=== PATIENT | female | born 1985 | race Caucasian/White ===

== ENCOUNTER 2016-07-29 14:57 | Inpatient (IN) | payer OTHER ==
[2016-07-29 16:36] VITALS: BMI 24.9
--- NOTE | 2016-07-29 18:47 | HP ---
CIWA Score - CIWA Score Nausea/Vomitin-Mild Nausea/No Vomiting Muscle Tremors: 4-Moderate,w/Arms Extend Anxiety: 4-Mod. Anxious/Guarded Agitation: 4-Moderately Restless Paroxysmal Sweats: 2 Orientation: 1-Uncertain about Date Tacttile Disturbances: 0-None Auditory Disturbances: 0-None Visual Disturbances: 0-None Headache: 2-Mild CIWA-Ar Total Score: 18 Admission ROS BHS - HPI Chief Complaint: withdrawal sx patient prefers librium detox regimen due to previous benzo detox librium worked well, tolerated well Allergies/Adverse Reactions: Allergies Allergy/AdvReac Type Severity Reaction Status Date / Time No Known Allergies Allergy Verified 07/29/16 17:28 History of Present Illness: 30 years old female with long history of klonopin xanax nicotine dependence, has restless leg syndron and depression is admitted to detox Exam Limitations: No Limitations - Ebola screening Have you traveled outside of the country in the last 21 days: No Have you had contact with anyone from an Ebola affected area: No Have you been sick,other than usual withdrawal symptoms: No Do you have a fever: No - Review of Systems Constitutional: Chills, Loss of Appetite, Changes in sleep, Unintentional Wgt. Loss, Unexplained wgt Loss EENT: reports: No Symptoms Reported Respiratory: reports: No Symptoms reported Cardiac: reports: No Symptoms Reported GI: reports: Nausea, Poor Appetite, Poor Fluid Intake, Abdominal cramping : reports: No Symptoms Reported Musculoskeletal: reports: No Symptoms Reported Integumentary: reports: Change in Color (right hand iv opiate) Neuro: reports: Seizure (xanax withdrawal related last episode 11/2015), Tremors Endocrine: reports: No Symptoms Reported Hematology: reports: No Symptoms Reported Psychiatric: reports: Judgement Intact, Depressed Other Systems: Reviewed and Negative Patient History - Patient Medical History Hx Anemia: No Hx Asthma: No Hx Chronic Obstructive Pulmonary Disease (COPD): No Hx Cancer: No Hx Cardiac Disorders: No Hx Congestive Heart Failure: No Hx Hypertension: No Hx Hypercholesterolemia: No Hx Pacemaker: No HX Cerebrovascular Accident: No Hx Seizures: No Hx Dementia: No Hx Diabetes: No Hx Gastrointestinal Disorders: No Hx Liver Disease: No Hx Genitourinary Disorders: No Hx Sexually Transmitted Disorders: No Hx Renal Disease (ESRD): No Hx Hepatitis C: No Hx Depression: Yes Hx Suicide Attempt: No Hx Bipolar Disorder: No Hx Schizophrenia: No - Patient Surgical History Past Surgical History: Yes Hx Neurologic Surgery: No Hx Cataract Extraction: No Hx Cardiac Surgery: No Hx Lung Surgery: No Hx Breast Surgery: No Hx Breast Biopsy: No Hx Abdominal Surgery: No Hx Appendectomy: No Hx Cholecystectomy: Yes (2011) Hx Genitourinary Surgery: No Hx Section: No Hx Orthopedic Surgery: No Hx Hysterectomy: No Anesthesia Reaction: No - PPD History Previous Implant?: Yes Documented Results: Negative w/o proof Implanted On Prior [facility] Admission?: No PPD to be Administered?: Yes - Reproductive History Patient is a Female of Child Bearing Age (11 -55 yrs old): Yes Last Menstrual Period: 07/22/16 Patient : No - Smoking Cessation Smoking history: Current every day smoker Have you smoked in the past 12 months: Yes Aproximately how many cigarettes per day: 5 Cigars Per Day: 0 Hx Chewing Tobacco Use: No Initiated information on smoking cessation: Yes 'Breaking Loose' booklet given: 07/29/16 - Substance & Tx. History Hx Alcohol Use: No Hx Substance Use: Yes Substance Use Type: Heroin, Opiates, Tranquilizers Hx Substance Use Treatment: Yes - Substances Abused Alprazolam (Xanax) Route: Oral Frequency: Daily Amount used: 30mg Age of first use: 29 Date of Last Use: 07/28/16 Benzodiazepine (Klonopin) Route: Oral Frequency: Daily Amount used: 20mg Age of first use: 29 Date of Last Use: 07/26/16 Family Disease History - Family Disease History Family Disease History: Heart Disease: Father, [place]: Mother Admission Physical Exam S - Vital Signs Vital Signs: Vital Signs - 24 hr 07/29/16 16:31 Temperature 97 F L Pulse Rate 85 Respiratory 20 Rate Blood Pressure 107/69 - Physical General Appearance: Yes: Appropriately Dressed, Moderate Distress, Thin, Tremorous, Irritable, Sweating, Anxious HEENTM: Yes: Hearing grossly Normal, Normal ENT Inspection, Normocephalic, Normal Voice Respiratory: Yes: Chest Non-Tender, Lungs Clear, Normal Breath Sounds, No Respiratory Distress, No Accessory Muscle Use Neck: Yes: Supple, Trachea in good position Breast: Yes: Breasts Symetrical Cardiology: Yes: Regular Rhythm, Regular Rate, S1, S2 Abdominal: Yes: Normal Bowel Sounds, Soft Genitourinary: Yes: Within Normal Limits Back: Yes: Normal Inspection Musculoskeletal: Yes: full range of Motion, Gait Steady Extremities: Yes: Normal Range of Motion, Non-Tender, Tremors Neurological: Yes: Alert, Motor Strength 5/5, Normal Response, Depressed Affect Integumentary: Yes: Warm, Track Acevedo Lymphatic: Yes: Within Normal Limits - Diagnostic (1) Sedative, hypnotic or anxiolytic dependence with withdrawal, uncomplicated Current Visit: Yes Status: Acute Comment: librium regimen as per patient preference (2) Methadone maintenance therapy patient Current Visit: Yes Status: Acute Comment: 145 mg verification pending (3) Weight loss Current Visit: Yes Status: Acute (4) Withdrawal from benzodiazepine Current Visit: Yes Status: Acute Qualifiers: Complication of substance-induced condition: uncomplicated Qualified Code(s): F13.230 - Sedative, hypnotic or anxiolytic dependence with withdrawal, uncomplicated (5) Nicotine dependence Current Visit: Yes Status: Acute Qualifiers: Nicotine product type: cigarettes Substance use status: in withdrawal Qualified Code(s): F17.213 - Nicotine dependence, cigarettes, with withdrawal Cleared for Admission [facility] - Detox or Rehab [facility] Level of Care: Medically Managed Detox Regimen/Protocol: Librium [facility] Breath Alcohol Content Breath Alcohol Content: 0 Urine Pregancy Test - Result Urine Test Results: Negative- NO Line Present Urine Drug Screen - Results Drug Screen Negative: No Urine Drug Screen Results: OPI-Opiates, BZO-Benzodiazepines, MTD-Methadone, OXY- Oxycodone
[2016-07-29] MEDS ORDERED: MAGNESIUM HYDROX 2400MG/30ML ORAL SUSPENSION 30 ML CUP PO PRN (19:12)
[2016-07-29] MEDS ORDERED: chlordiazePOXIDE HCL 25 MG CAPSULE PO ONE (19:12)
[2016-07-29] MEDS ORDERED: MAG HYDROX/AL HYDROX/SIMETH 30 ML UNIT-DOSE CUP PO PRN (19:12)
[2016-07-29] MEDS ORDERED: IBUPROFEN 400 MG TABLET (FP) PO PRN (19:12)
[2016-07-29] MEDS ORDERED: P-EPHED 60MG/TRIPROLIDI 2.5MG TABLET PO PRN (19:12)
[2016-07-29] MEDS ORDERED: MENTHOL/PHENOL 1 EACH UD MM PRN (19:12)
[2016-07-29] MEDS ORDERED: diphenhydrAMINE HCL 50 MG CAPSULE PO PRN (19:12)
[2016-07-29] MEDS ORDERED: MAGNESIUM CITRATE 300 ML BOTTLE PO PRN (19:12)
[2016-07-29] MEDS ORDERED: LOPERAMIDE HCL 2 MG CAPSULE PO PRN (19:12)
[2016-07-29] MEDS ORDERED: guaiFENesin/D-METHORPHAN HB 10 ML UNIT-DOSE CUPS PO PRN (19:12)
[2016-07-29] MEDS ORDERED: NICOTINE POLACRILEX 2 MG GUM BC PRN (19:12)
[2016-07-29 22:47] LABS: URINE APPEARANCE CLOUDY; URINE BILIRUBIN NEGATIVE (NEGATIVE); URINE BLOOD NEGATIVE (NEGATIVE); URINE COLOR YELLOW; URINE GLUCOSE (UA) NEGATIVE (NEGATIVE); URINE KETONE NEGATIVE (NEGATIVE); URINE NITRITE POSITIVE (NEGATIVE); URINE UROBILINOGEN NEGATIVE E.U./dl (0.2-1.0)
[2016-07-29] MEDS: chlordiazePOXIDE HCL 25 MG CAPSULE PO SCH (22:47)
[2016-07-29] MEDS: GABAPENTIN 300 MG CAPSULE (FP) PO SCH (22:47)
[2016-07-29] MEDS: THIAMINE HCL 100 MG TABLET (FP) PO SCH (22:48)
[2016-07-29 22:52] LABS: URINE LEUK ESTERASE 3+ (NEGATIVE); URINE PROTEIN 1+ (NEGATIVE)
[2016-07-29 22:56] LABS: URINE BACTERIA RARE /hpf (NONE SEEN); URINE MUCUS FEW; URINE RBC 2 /hpf (0-3); URINE WBC 145 /hpf (3-5)
[2016-07-30] MEDS: GABAPENTIN 300 MG CAPSULE (FP) PO SCH ×3 (06:09→23:23)
[2016-07-30] MEDS: chlordiazePOXIDE HCL 25 MG CAPSULE PO SCH ×4 (06:09→23:23)
[2016-07-30] MEDS ORDERED: METHADONE HCL 10 MG TABLET PO ONE (08:19)
[2016-07-30] MEDS ORDERED: METHADONE PO SCH (09:00)
[2016-07-30] MEDS ORDERED: METHADONE HCL 5 MG TABLET ONE ×2 (10:14→11:09)
[2016-07-30] MEDS ORDERED: METHADONE HCL 40 MG DISPERSABLE TABLET ONE ×2 (10:14→11:09)
[2016-07-30] MEDS ORDERED: METHADONE 120 MG, METHADONE 20 MG, METHADONE 5 MG PO SCH (10:21)
[2016-07-30 10:37] LABS: MCHC 32.9 g/dl (32.0-36.0); MEAN PLT VOLUME 8.2 fl (7.5-11.1); PLATELET COUNT 160 K/MM3 (134-434); RDW 13.6 % (11.6-15.6); WHITE BLOOD COUNT 6.5 K/mm3 (4.0-10.0)
[2016-07-30] MEDS ORDERED: METHADONE HCL 10 MG TABLET ONE (11:09)
[2016-07-30] MEDS: METHADONE 120 MG, METHADONE 20 MG, METHADONE 5 MG PO SCH (12:00)
[2016-07-30] MEDS: NICOTINE 14 MG/24 HOURS TOPICAL PATCH TD SCH (12:01)
[2016-07-30] MEDS: PRENATAL VITAMINS W/ FOLIC ACID TABLET (FP) PO SCH (12:01)
[2016-07-30 12:23] LABS: ALBUMIN 3.1 g/dl (3.4-5.0); ANION GAP 9 (8-16); CALCIUM 8.2 mg/dL (8.5-10.1); CO2 29 mmol/L (21-32); GLUCOSE,RANDOM 92 mg/dL (74-106); SGOT/AST 37 U/L (15-37); SGPT/ALT 39 U/L (12-78)
[2016-07-30 12:26] LABS: ALK PHOS 96 U/L (45-117); BILIRUBIN,TOTAL 0.3 mg/dL (0.2-1.0); CREATININE 0.7 mg/dL (0.55-1.02); TOT PROT 6.3 g/dl (6.4-8.2)
--- NOTE | 2016-07-30 14:56 | CONSULT ---
[facility] Psychiatric Consult - Data Date of interview: 07/30/16 Admission source: [facility] Identifying data: First admission to [facility] for this 30 y/o female seeking detox treatment for heroin and benzodiazepine (xanax/klonopin) dependence.PAtient is ,a mother of one,domiciled,unemployed and supported by her . Substance Abuse History: - Smoking Cessation. Smoking history: Current every day smoker. Have you smoked in the past 12 months: Yes. Aproximately how many cigarettes per day: 5. Cigars Per Day: 0. Hx Chewing Tobacco Use: No. Initiated information on smoking cessation: Yes. 'Breaking Loose' booklet given : 07/29/16. - Substance & Tx. History. Hx Alcohol Use: No. Hx Substance Use: Yes. Substance Use Type: Heroin, Opiates, Tranquilizers. Hx Substance Use Treatment: Yes. - Substances Abused. Alprazolam (Xanax). Route: Oral. Frequency: Daily. Amount used: 30mg. Age of first use: 29. Date of Last Use: 07/28/16. Benzodiazepine (Klonopin). Route: Oral. Frequency: Daily. Amount used: 20mg. Age of first use: 29. Confirmed by patient. Medical History: History of cholecystectomy.Patient,otherwise,endorses good general health. Psychiatric History: No history of psychiatric hospitalizations.Patient is on methadone maintenance at the [facility] MMTP program (145 mg/day).She is also prescribed gabapentin 600 mg po tid for mood regulation.Diagnosed with Mood Disorder and Anxiety Disorder.Ms Durán denies history of suicide attempts. Physical/Sexual Abuse/Trauma History: Patient denies history of sexual abuse.She reports a family history of suicide attempts on her paternal side ( grand father,a paternal uncle and one of her father's cousins). Additional Comment: Urine Drug Screen Results: OPI-Opiates, BZO-Benzodiazepines , MTD-Methadone, OXY-Oxycodone.Noted. Mental Status Exam - Mental Status Exam Alert and Oriented to: Time, Place, Person Cognitive Function: Good Patient Appearance: Well Groomed (overweight) Mood: Hopeful (future-oriented), Euthymic Affect: Appropriate, Normal Range Patient Behavior: Fatigued, Appropriate (well-mannered), Cooperative Speech Pattern: Clear, Appropriate (articulate) Voice Loudness: Normal Thought Process: Intact, Goal Oriented Thought Disorder: Not Present Hallucinations: Denies Suicidal Ideation: Denies Homicidal Ideation: Denies Insight/Judgement: Fair Sleep: Fair Appetite: Good Muscle strength/Tone: Normal Gait/Station: Normal Psychiatric Findings - Problem List ([place] 1, 2,3) (1) Opioid dependence on agonist therapy Current Visit: Yes Status: Acute (2) Sedative, hypnotic or anxiolytic dependence with withdrawal, uncomplicated Current Visit: Yes Status: Acute Comment: librium regimen as per patient preference (3) Nicotine dependence Current Visit: Yes Status: Acute Qualifiers: Nicotine product type: cigarettes Substance use status: in withdrawal Qualified Code(s): F17.213 - Nicotine dependence, cigarettes, with withdrawal (4) Substance induced mood disorder Current Visit: Yes Status: Acute - Initial Treatment Plan Initial Treatment Plan: Psychoeducation.Detoxification in progress.Gabapentin 600 mg po tid is ordered (medical attending).Side effects/benefits discussed with the patient.She is in agreement with this plan of care.Observation.
--- NOTE | 2016-07-30 15:16 | PN ---
S CIWA - CIWA Score Nausea/Vomitin Muscle Tremors: 3 Anxiety: 3 Agitation: 3 Paroxysmal Sweats: 1-Minimal Palms Moist Orientation: 0-Oriented Tacttile Disturbances: 1-Very Mild Itch/Numbness Auditory Disturbances: 1-Very Mild Visual Disturbances: 1-Very Mild Sensitivity Headache: 2-Mild CIWA-Ar Total Score: 18 BHS Progress Note (SOAP) Subjective: ALERT,IRRITABLE,ANXIOUS,INTERRUPTED SLEEP,PAIN IN THE BODY AND BACK Objective: 07/30/16 15:14 Vital Signs Temperature 96.6 F L 07/30/16 14:31 Pulse Rate 82 07/30/16 14:31 Respiratory Rate 18 07/30/16 14:31 Blood Pressure 112/63 07/30/16 14:31 O2 Sat by Pulse Oximetry (%) EKG NSR WITH SINUS ARRHYTHMIA Laboratory Last Values WBC 6.5 K/mm3 (4.0-10.0) 07/30/16 08:13 RBC 4.37 M/mm3 (3.60-5.2) 07/30/16 08:13 Hgb 12.6 GM/dL (10.7-15.3) 07/30/16 08:13 Hct 38.4 % (32.4-45.2) 07/30/16 08:13 MCV 88.0 fl (80-96) 07/30/16 08:13 MCHC 32.9 g/dl (32.0-36.0) 07/30/16 08:13 RDW 13.6 % (11.6-15.6) 07/30/16 08:13 Plt Count 160 K/MM3 (134-434) 07/30/16 08:13 MPV 8.2 fl (7.5-11.1) 07/30/16 08:13 Sodium 141 mmol/L (136-145) 07/30/16 08:13 Potassium 4.1 mmol/L (3.5-5.1) 07/30/16 08:13 Chloride 103 mmol/L (98-107) 07/30/16 08:13 Carbon Dioxide 29 mmol/L (21-32) 07/30/16 08:13 Anion Gap 9 (8-16) 07/30/16 08:13 BUN 14 mg/dL (7-18) 07/30/16 08:13 Creatinine 0.7 mg/dL (0.55-1.02) 07/30/16 08:13 Creat Clearance w eGFR > 60 (>60) 07/30/16 08:13 Random Glucose 92 mg/dL (74-106) 07/30/16 08:13 Calcium 8.2 mg/dL (8.5-10.1) L 07/30/16 08:13 Total Bilirubin 0.3 mg/dL (0.2-1.0) 07/30/16 08:13 AST 37 U/L (15-37) 07/30/16 08:13 ALT 39 U/L (12-78) 07/30/16 08:13 Alkaline Phosphatase 96 U/L (45-117) 07/30/16 08:13 Total Protein 6.3 g/dl (6.4-8.2) L 07/30/16 08:13 Albumin 3.1 g/dl (3.4-5.0) L 07/30/16 08:13 Urine Color Yellow 07/29/16 22:37 Urine Appearance Cloudy 07/29/16 22:37 Urine pH 7.0 (5.0-8.0) 07/29/16 22:37 Ur Specific [place] 1.020 (1.001-1.035) 07/29/16 22:37 Urine Protein 1+ (NEGATIVE) H 07/29/16 22:37 Urine Glucose (UA) Negative (NEGATIVE) 07/29/16 22:37 Urine Ketones Negative (NEGATIVE) 07/29/16 22:37 Urine Blood Negative (NEGATIVE) 07/29/16 22:37 Urine Nitrite Positive (NEGATIVE) 07/29/16 22:37 Urine Bilirubin Negative (NEGATIVE) 07/29/16 22:37 Urine Urobilinogen Negative E.U./dl (0.2-1.0) 07/29/16 22:37 Ur Leukocyte Esterase 3+ (NEGATIVE) H 07/29/16 22:37 Urine RBC 2 /hpf (0-3) 07/29/16 22:37 Urine WBC 145 /hpf (3-5) 07/29/16 22:37 Ur Epithelial Cells Many /hpf (FEW) 07/29/16 22:37 Amorphous Urates Few /hpf (NONE SEEN) 07/29/16 22:37 Urine Bacteria Rare /hpf (NONE SEEN) 07/29/16 22:37 Urine Mucus Few 07/29/16 22:37 Assessment: 07/30/16 15:15 WITHDRAWAL SYMPTOM Plan: CONTINUE DETOX,REPEAT UA.URINE FOR C/C R/O UTI,FLUID
[2016-07-30] MEDS: chlordiazePOXIDE HCL 25 MG CAPSULE PO PRN ×2 (15:52→20:49)
[2016-07-30] MEDS: THIAMINE HCL 100 MG TABLET (FP) PO SCH (23:23)
[2016-07-31] MEDS ORDERED: METHADONE HCL 10 MG TABLET ONE (05:44)
[2016-07-31] MEDS ORDERED: METHADONE HCL 40 MG DISPERSABLE TABLET ONE (05:46)
[2016-07-31] MEDS ORDERED: METHADONE HCL 5 MG TABLET ONE (05:46)
[2016-07-31] MEDS ORDERED: METHADONE HCL 10 MG TABLET PO SCH (06:00)
[2016-07-31] MEDS: METHADONE 120 MG, METHADONE 20 MG, METHADONE 5 MG PO SCH (06:18)
[2016-07-31] MEDS: GABAPENTIN 300 MG CAPSULE (FP) PO SCH ×3 (06:18→23:06)
[2016-07-31] MEDS: chlordiazePOXIDE HCL 25 MG CAPSULE PO SCH ×3 (07:58→17:31)
[2016-07-31] MEDS: chlordiazePOXIDE HCL 25 MG CAPSULE PO PRN ×3 (08:39→19:14)
[2016-07-31] MEDS: PRENATAL VITAMINS W/ FOLIC ACID TABLET (FP) PO SCH (10:41)
[2016-07-31] MEDS: NICOTINE 14 MG/24 HOURS TOPICAL PATCH TD SCH (10:42)
--- NOTE | 2016-07-31 11:39 | EKG ---
Test Reason : Blood Pressure : / mmHG Vent. Rate : 060 BPM Atrial Rate : 060 BPM P-R Int : 146 ms QRS Dur : 086 ms QT Int : 470 ms P-R-T Axes : 059 076 048 degrees QTc Int : 470 ms BASELINE ARTIFACT NORMAL SINUS RHYTHM NORMAL ECG NO PREVIOUS ECGS AVAILABLE Confirmed by JJ GIRALDO MD ([id number]) on 07/31/2016 11:39:09 AM Referred By: Confirmed By:JJ GIRALDO MD
--- NOTE | 2016-07-31 13:28 | PN ---
S CIWA - CIWA Score Nausea/Vomitin Muscle Tremors: 3 Anxiety: 3 Agitation: 2 Paroxysmal Sweats: 1-Minimal Palms Moist Orientation: 0-Oriented Tacttile Disturbances: 1-Very Mild Itch/Numbness Auditory Disturbances: 1-Very Mild Visual Disturbances: 1-Very Mild Sensitivity Headache: 2-Mild CIWA-Ar Total Score: 17 BHS Progress Note (SOAP) Subjective: ALERT,IRRITABLE,ANXIOUS,INTERRUPTED SLEEP,PAIN IN THE BODY Objective: 07/31/16 13:26 Vital Signs Temperature 97.9 F 07/31/16 10:07 Pulse Rate 77 07/31/16 10:07 Respiratory Rate 18 07/31/16 10:07 Blood Pressure 95/67 07/31/16 10:07 O2 Sat by Pulse Oximetry (%) Assessment: 07/31/16 13:26 WITHDRAWAL SYMPTOM Plan: CONTINUE DETOX,REPEAT UA AND URINE FOR C/S R/O UTI,START ON BACTRIM DS 1 TAB PO BID
[2016-07-31] MEDS: SULFAMETHOXAZOLE/TRIMETHOPRIM 800MG/160MG D.S. TABLET PO SCH ×2 (15:01→23:13)
[2016-07-31] MEDS: ACETAMINOPHEN 325 MG TABLET (FP) PO PRN (15:01)
[2016-07-31] MEDS: chlordiazePOXIDE 5 MG CAPSULE PO SCH (23:06)
[2016-07-31] MEDS: THIAMINE HCL 100 MG TABLET (FP) PO SCH (23:06)
[2016-08-01] MEDS ORDERED: METHADONE HCL 10 MG TABLET ONE (04:40)
[2016-08-01] MEDS ORDERED: METHADONE HCL 5 MG TABLET ONE (04:41)
[2016-08-01] MEDS ORDERED: METHADONE HCL 40 MG DISPERSABLE TABLET ONE (04:41)
[2016-08-01] MEDS: chlordiazePOXIDE 5 MG CAPSULE PO SCH ×3 (05:49→17:30)
[2016-08-01] MEDS: METHADONE 120 MG, METHADONE 20 MG, METHADONE 5 MG PO SCH (05:50)
[2016-08-01] MEDS: GABAPENTIN 300 MG CAPSULE (FP) PO SCH ×3 (05:56→22:49)
[2016-08-01] MEDS: chlordiazePOXIDE HCL 25 MG CAPSULE PO PRN ×3 (08:38→18:25)
--- NOTE | 2016-08-01 09:34 | PN ---
BHS Progress Note (SOAP) Subjective: shakes sweats interrupted sleep agitation Objective: 08/01/16 09:40 Vital Signs Temperature 97.7 F 08/01/16 06:00 Pulse Rate 90 08/01/16 06:00 Respiratory Rate 18 08/01/16 06:00 Blood Pressure 105/72 08/01/16 06:00 O2 Sat by Pulse Oximetry (%) awake/alert ambulating no acute distress Assessment: 08/01/16 09:40 withdrawal sx Plan: continue detox increase fluids visitiril prn d/c in am
[2016-08-01] MEDS: SULFAMETHOXAZOLE/TRIMETHOPRIM 800MG/160MG D.S. TABLET PO SCH ×2 (10:45→22:50)
[2016-08-01] MEDS: PRENATAL VITAMINS W/ FOLIC ACID TABLET (FP) PO SCH (10:45)
[2016-08-01] MEDS: NICOTINE 14 MG/24 HOURS TOPICAL PATCH TD SCH (10:46)
[2016-08-01] MEDS: CYCLOBENZAPRINE HCL 10 MG TABLET (FP) PO PRN ×2 (10:48→22:50)
[2016-08-01] MEDS: ACETAMINOPHEN 325 MG TABLET (FP) PO PRN (13:47)
[2016-08-01] MEDS: hydrOXYzine PAMOATE 50 MG CAPSULE (FP) PO PRN ×2 (17:32→22:49)
[2016-08-01] MEDS ORDERED: chlordiazePOXIDE 5 MG CAPSULE ONE (21:24)
[2016-08-01] MEDS: THIAMINE HCL 100 MG TABLET (FP) PO SCH (22:50)
[2016-08-01] MEDS: chlordiazePOXIDE HCL 10 MG CAPSULE PO SCH (22:52)
[2016-08-02] MEDS: hydrOXYzine PAMOATE 50 MG CAPSULE (FP) PO PRN ×2 (01:56→09:07)
[2016-08-02] MEDS ORDERED: chlordiazePOXIDE 5 MG CAPSULE ONE (04:46)
[2016-08-02] MEDS ORDERED: METHADONE HCL 10 MG TABLET ONE (05:48)
[2016-08-02] MEDS ORDERED: METHADONE HCL 40 MG DISPERSABLE TABLET ONE (05:49)
[2016-08-02] MEDS ORDERED: METHADONE HCL 5 MG TABLET ONE (05:49)
[2016-08-02] MEDS: METHADONE 120 MG, METHADONE 20 MG, METHADONE 5 MG PO SCH (06:25)
[2016-08-02] MEDS: chlordiazePOXIDE HCL 10 MG CAPSULE PO SCH (06:25)
[2016-08-02] MEDS: GABAPENTIN 300 MG CAPSULE (FP) PO SCH (08:19)
[2016-08-02] MEDS: PRENATAL VITAMINS W/ FOLIC ACID TABLET (FP) PO SCH (09:06)
[2016-08-02] MEDS: CYCLOBENZAPRINE HCL 10 MG TABLET (FP) PO PRN (09:07)
--- NOTE | 2016-08-02 09:36 | DS ---
[facility] Detox Discharge Summary Admission Date: 07/29/16 Discharge Date: 08/02/16 - History Present History: Opioid Dependence, Sedative Dependence - Physical Exam Results Vital Signs: Vital Signs Temperature 97.2 F L 08/02/16 06:55 Pulse Rate 72 08/02/16 06:55 Respiratory Rate 18 08/02/16 06:55 Blood Pressure 108/70 08/02/16 06:55 O2 Sat by Pulse Oximetry (%) - Treatment Hospital Course: Detox Protocol Followed, Detoxed Safely, Responded well, Discharged Condition Good - Medication Discharge Medications: Ambulatory Orders Gabapentin [Neurontin -] 600 mg PO TID 07/29/16 - Diagnosis (1) Methadone maintenance therapy patient Current Visit: Yes Status: Chronic (2) Nicotine dependence Current Visit: Yes Status: Chronic Qualifiers: Nicotine product type: cigarettes Substance use status: in withdrawal Qualified Code(s): F17.213 - Nicotine dependence, cigarettes, with withdrawal (3) Sedative, hypnotic or anxiolytic dependence with withdrawal, uncomplicated Current Visit: Yes Status: Chronic (4) Weight loss Current Visit: Yes Status: Chronic (5) UTI (urinary tract infection) Current Visit: Yes Status: Acute Qualifiers: Urinary tract infection type: acute cystitis - AMA Did Patient Leave Against Medical Advice: No
[2016-08-02 11:31] VITALS: BP 104/69; PULSE 90; TEMP 98.2
== END 2016-08-02 10:01 | disposition home or self-care (01) | DRG 773 ==
LOC: YASAS 14:57 → Y6N 17:59
PROVIDERS: ADMIT Internal Medicine Addiction Medicine; ATTEND Internal Medicine Addiction Medicine
PROC: HZ2ZZZZ Detoxification Services for Substance Abuse Treatment (ICD-10-PCS; principal; 2016-08-02)
DX: F11.20 Opioid dependence, uncomplicated (principal); F13.230 Sedative, hypnotic or anxiolytic dependence with withdrawal, uncomplicated; F17.213 Nicotine dependence, cigarettes, with withdrawal; F19.24 Other psychoactive substance dependence with psychoactive substance-induced mood disorder; R63.4 Abnormal weight loss; Z68.24 Body mass index [BMI] 24.0-24.9, adult
CPT/HCPCS: 36415; 80053; 81003; 81015; 85027; 86593; 87086; 93005; 93010

== ENCOUNTER 2018-05-29 13:42 | Inpatient (IN) | payer OTHER ==
[2018-05-29 14:22] VITALS: BMI 27.8
--- NOTE | 2018-05-29 16:07 | HP ---
CIWA Score Nausea/Vomitin-Int. Nausea w/Dry Heave Muscle Tremors: 4-Moderate,w/Arms Extend Anxiety: 4-Mod. Anxious/Guarded Agitation: 4-Moderately Restless Paroxysmal Sweats: No Perspiration Orientation: 0-Oriented Tacttile Disturbances: 0-None Auditory Disturbances: 0-None Visual Disturbances: 2-Mild Sensitivity Headache: 4-Moderately Severe CIWA-Ar Total Score: 22 - Admission Criteria [facility] Guidelines: Admission for Medically Managed Detox: Requires at least one of the followin. CIWA greater than 12 2. Seizures within the past 24 hours 3. Delirium tremens within the past 24 hours 4. Hallucinations within the past 24 hours 5. Acute intervention needed for co occurring medical disorder 6. Acute intervention needed for co occurring psychiatric disorder 7. Severe withdrawal that cannot be handled at a lower level of care (continued vomiting, continued diarrhea, abnormal vital signs) requiring intravenous medication and/or fluids 8. Patient presents the following: CIWA greater than 12, Seizures, delirium tremens or hallucinations in the past 12 hours Admission Criteria Met: Admission criteria met Admission ROS [facility] Allergies/Adverse Reactions: Allergies Allergy/AdvReac Type Severity Reaction Status Date / Time Fish Containing Products Allergy Severe Swelling Verified 05/29/18 16:57 No Known Drug Allergies Allergy Verified 05/29/18 17:41 History of Present Illness: patient here requesting detox from benzo use , reports 10-15 x 2 mg xanax / day since 2 years ago ,+ withdrawal seizure 1 mo ago did not go to the hospital , latest use this morning . etoh use : 1 pint vodka every 2 days , + blackouts , denies tremors , + falls most recently 6 mo ago hit the back of her head went to hospital in [place] . cannabis : occasional utox + thc , mtd, + Bzo MMTP : since 5 years ago , currently 175 mg q d latest today tobacco : 05/18 ppd x 15 years PMHX : denies PSHX : dee 2012 psych : depression , anxiety , claims on lamictal and gabapentin upt neg lmp : now dtr age 6 currently w/ bio father in [place] SHX : lives w/ dtr and , unemployed . - Ebola screening Have you traveled outside of the country in the last 21 days: No Have you had contact with anyone from an Ebola affected area: No Have you been sick,other than usual withdrawal symptoms: No Do you have a fever: No - Review of Systems Constitutional: See HPI EENT: reports: Other (contact , denies dysphagia except due to lack of teeth) Respiratory: reports: No Symptoms reported Cardiac: reports: No Symptoms Reported GI: reports: See HPI : reports: No Symptoms Reported Musculoskeletal: reports: No Symptoms Reported Integumentary: reports: Rash (went to ER 2 weeks ago , given ointment , feels rahs has improved) Neuro: reports: Headache Endocrine: reports: No Symptoms Reported Psychiatric: reports: Mood/Affect Appropiate, Orientated x3 Patient History - Patient Medical History Hx Anemia: No Hx Asthma: No Hx Chronic Obstructive Pulmonary Disease (COPD): No Hx Cancer: No Hx Cardiac Disorders: No Hx Congestive Heart Failure: No Hx Hypertension: No Hx Hypercholesterolemia: No Hx Pacemaker: No HX Cerebrovascular Accident: No Hx Seizures: No Hx Dementia: No Hx Diabetes: No Hx Gastrointestinal Disorders: No Hx Liver Disease: No Hx Genitourinary Disorders: No Hx Sexually Transmitted Disorders: No Hx Renal Disease (ESRD): No Hx Hepatitis C: No Hx Depression: Yes Hx Suicide Attempt: No Hx Bipolar Disorder: No Hx Schizophrenia: No - Patient Surgical History Past Surgical History: Yes Hx Neurologic Surgery: No Hx Cataract Extraction: No Hx Cardiac Surgery: No Hx Lung Surgery: No Hx Breast Surgery: No Hx Breast Biopsy: No Hx Abdominal Surgery: No Hx Appendectomy: No Hx Cholecystectomy: Yes (2011) Hx Genitourinary Surgery: No Hx Section: No Hx Orthopedic Surgery: No Hx Hysterectomy: No Anesthesia Reaction: No - PPD History Date: 07/31/16 - Reproductive History Last Menstrual Period: 07/22/16 - Smoking Cessation Smoking history: Current every day smoker Have you smoked in the past 12 months: Yes Aproximately how many cigarettes per day: 5 Cigars Per Day: 0 Hx Chewing Tobacco Use: No Initiated information on smoking cessation: No - Substances Abused Alcohol Route: Oral Frequency: Daily Amount used: LIQUOR- 1 PINT Age of first use: 18 Date of Last Use: 05/28/18 Alprazolam (Xanax) Route: Oral Frequency: Daily Amount used: 30mg Age of first use: 30 Date of Last Use: 05/28/18 Family Disease History - Family Disease History Family Disease History: Heart Disease: Father, [place]: Mother Admission Physical Exam S - Vital Signs Vital Signs: Vital Signs - 24 hr 05/29/18 14:18 Temperature 97.4 F L Pulse Rate 83 Respiratory 18 Rate Blood Pressure 135/73 - Physical General Appearance: Yes: Moderate Distress HEENTM: Yes: EOMI, Hearing grossly Normal, Normocephalic, Normal Voice, Pharynx Normal Respiratory: Yes: Chest Non-Tender, Lungs Clear, Normal Breath Sounds Neck: Yes: No masses,lesions,Nodules, Trachea in good position Breast: Yes: Breast Exam Deferred Cardiology: Yes: Regular Rhythm, Regular Rate, S1, S2, Tachycardia Abdominal: Yes: Normal Bowel Sounds, Non Tender Genitourinary: Yes: Within Normal Limits Back: Yes: Normal Inspection Musculoskeletal: Yes: Gait Steady Extremities: Yes: Normal Capillary Refill, Normal Range of Motion Neurological: Yes: Motor Strength 5/5, Normal Mood/Affect Integumentary: Yes: Normal Color, Dry, Warm - Diagnostic (1) Alcohol dependence Current Visit: Yes Status: Acute Qualifiers: Substance use status: in withdrawal (2) Opioid dependence on agonist therapy Current Visit: No Status: Chronic (3) Withdrawal from benzodiazepine Current Visit: No Status: Acute Qualifiers: Complication of substance-induced condition: uncomplicated Qualified Code(s ): F13.230 - Sedative, hypnotic or anxiolytic dependence with withdrawal, uncomplicated (4) Nicotine dependence Current Visit: No Status: Chronic Qualifiers: Nicotine product type: cigarettes Substance use status: in withdrawal Qualified Code(s): F17.213 - Nicotine dependence, cigarettes, with withdrawal S Breath Alcohol Content Breath Alcohol Content: 0 Urine Pregancy Test - Result Urine Test Results: Negative- NO Line Present Urine Drug Screen - Results Drug Screen Negative: No Urine Drug Screen Results: THC-Marijuana, BZO-Benzodiazepines, MTD-Methadone
[2018-05-29] MEDS ORDERED: MENTHOL/PHENOL 1 EACH UD MM PRN (16:13)
[2018-05-29] MEDS ORDERED: MAGNESIUM CITRATE 300 ML BOTTLE PO PRN (16:13)
[2018-05-29] MEDS ORDERED: guaiFENesin/D-METHORPHAN HB 10 ML UNIT-DOSE CUPS PO PRN (16:13)
[2018-05-29] MEDS ORDERED: P-EPHED 60MG/TRIPROLIDI 2.5MG TABLET PO PRN (16:13)
[2018-05-29] MEDS ORDERED: MAG HYDROX/AL HYDROX/SIMETH 30 ML UNIT-DOSE CUP PO PRN (16:13)
[2018-05-29] MEDS: chlordiazePOXIDE HCL 25 MG CAPSULE PO PRN (18:30)
[2018-05-29] MEDS: NICOTINE POLACRILEX 2 MG GUM BC PRN (20:44)
[2018-05-29] MEDS: THIAMINE HCL 100 MG TABLET (FP) PO SCH (22:17)
[2018-05-29] MEDS: chlordiazePOXIDE HCL 25 MG CAPSULE PO SCH (22:17)
[2018-05-29] MEDS: MELATONIN 5 MG TABLETS PO PRN (22:18)
[2018-05-30] MEDS: chlordiazePOXIDE HCL 25 MG CAPSULE PO SCH ×3 (05:41→17:05)
[2018-05-30] MEDS ORDERED: METHADONE HCL 10 MG TABLET PO SCH (07:30)
--- NOTE | 2018-05-30 07:38 | CONSULT ---
[facility] Psychiatric Consult - Data Date of interview: 05/30/18 Admission source: [facility] Identifying data: This is a 32 years old female, mother of one, unemployed, living with family, supporting by his , with no psychiatric hospitalization history, currently on MMTP 175 mg per day, is here reporting withdrawal symptoms and seeking detox, reports Opioids, Benzodiazepins and Alcohol dependence. Substance Abuse History: - Smoking Cessation. Smoking history: Current every day smoker. Have you smoked in the past 12 months: Yes. Aproximately how many cigarettes per day: 5. Cigars Per Day: 0. Hx Chewing Tobacco Use: No. Initiated information on smoking cessation: No. - Substances Abused. Alcohol. Route: Oral. Frequency: Daily. Amount used: LIQUOR- 1 PINT. Age of first use: 18. Date of Last Use: 05/28/18. Alprazolam (Xanax). Route: Oral. Frequency: Daily. Amount used: 30mg. Age of first use: 30. Date of Last Use: 05/28/18 Medical History: Weight loss history, UTI history Psychiatric History: Patient reports history of anxiety and depression, reports no psychiatric hospitalization history, no suicidal, hpomicidal history, reports taking prior to admission: Gabapentin 500mg po qid. Lamictal 50mg po bid Physical/Sexual Abuse/Trauma History: Denies Additional Comment: Gabapentin 500mg po qid. Lamictal 50mg po bid Mental Status Exam - Mental Status Exam Alert and Oriented to: Person Cognitive Function: Fair Patient Appearance: Well Groomed Mood: Apprehensive Affect: Appropriate Patient Behavior: Cooperative Speech Pattern: Appropriate Voice Loudness: Mildly Soft/Quiet Thought Process: Goal Oriented Thought Disorder: Being Controlled Hallucinations: Denies Suicidal Ideation: Denies Homicidal Ideation: Denies Insight/Judgement: Fair Sleep: Difficulty falling asleep Appetite: Weight loss Muscle strength/Tone: Normal Gait/Station: Normal Additional Comments: Gabapentin 500mg po qid. Lamictal 50mg po bid Psychiatric Findings - Problem List ([place] 1, 2,3) (1) Alcohol dependence Current Visit: Yes Status: Acute Qualifiers: Substance use status: in withdrawal (2) Substance induced mood disorder Current Visit: No Status: Acute (3) UTI (urinary tract infection) Current Visit: No Status: Acute Qualifiers: Urinary tract infection type: acute cystitis (4) Withdrawal from benzodiazepine Current Visit: No Status: Acute Qualifiers: Complication of substance-induced condition: uncomplicated Qualified Code(s ): F13.230 - Sedative, hypnotic or anxiolytic dependence with withdrawal, uncomplicated (5) Methadone maintenance therapy patient Current Visit: No Status: Chronic Comment: 145 mg verification pending (6) Nicotine dependence Current Visit: No Status: Chronic Qualifiers: Nicotine product type: cigarettes Substance use status: in withdrawal Qualified Code(s): F17.213 - Nicotine dependence, cigarettes, with withdrawal (7) Opioid dependence on agonist therapy Current Visit: No Status: Chronic (8) Sedative, hypnotic or anxiolytic dependence with withdrawal, uncomplicated Current Visit: No Status: Chronic Comment: librium regimen as per patient preference (9) Weight loss Current Visit: No Status: Chronic - Initial Treatment Plan Initial Treatment Plan: Gabapentin 500mg po qid. Lamictal 50mg po bid
[2018-05-30] MEDS ORDERED: METHADONE HCL 5 MG TABLET ONE (07:51)
[2018-05-30] MEDS ORDERED: METHADONE HCL 40 MG DISPERSABLE TABLET ONE (07:51)
[2018-05-30] MEDS ORDERED: METHADONE HCL 10 MG TABLET ONE (07:51)
[2018-05-30] MEDS: METHADONE 160 MG, METHADONE 10 MG, METHADONE 5 MG PO SCH (07:53)
[2018-05-30] MEDS: ACETAMINOPHEN 325 MG TABLET (FP) PO PRN (07:55)
[2018-05-30] MEDS: PRENATAL VITAMINS W/ FOLIC ACID TABLET (FP) PO SCH (10:23)
[2018-05-30 10:32] LABS: MCH 30.6 pg (25.7-33.7); MCHC 34.3 g/dl (32.0-36.0); MEAN CELL VOLUME 89.3 fl (80-96); MEAN PLT VOLUME 9.3 fl (7.5-11.1); PLATELET COUNT 189 K/MM3 (134-434); RBC 4.59 M/mm3 (3.60-5.2); RDW 13.3 % (11.6-15.6); WHITE BLOOD COUNT 7.6 K/mm3 (4.0-10.0)
[2018-05-30] MEDS: lamoTRIgine 25 MG TABLET PO SCH ×2 (10:32→22:33)
[2018-05-30 10:36] LABS: ALBUMIN 3.9 g/dl (3.4-5.0); ALK PHOS 85 U/L (45-117); ANION GAP 11 MMOL/L (8-16); BILIRUBIN,TOTAL 0.8 mg/dL (0.2-1); BLOOD UREA NITROGEN 11 mg/dL (7-18); CALCIUM 8.9 mg/dL (8.5-10.1); CHLORIDE 104 mmol/L (98-107); CO2 24 mmol/L (21-32); CREATININE 1.1 mg/dL (0.55-1.3); GLUCOSE,RANDOM 133 mg/dL (74-106); POTASSIUM 3.8 mmol/L (3.5-5.1); SGOT/AST 15 U/L (15-37); SGPT/ALT 17 U/L (13-61); SODIUM 139 mmol/L (136-145); TOT PROT 7.4 g/dl (6.4-8.2)
[2018-05-30] MEDS: GABAPENTIN 300 MG CAPSULE (FP) PO SCH ×4 (10:36→22:33)
[2018-05-30] MEDS ORDERED: ONDANSETRON *ODT* 4 MG TABLET SL ONE (12:00)
--- NOTE | 2018-05-30 13:49 | PN ---
[facility] CIWA - CIWA Score Nausea/Vomitin-Mild Nausea/No Vomiting Muscle Tremors: 4-Moderate,w/Arms Extend Anxiety: 4-Mod. Anxious/Guarded Agitation: 4-Moderately Restless Paroxysmal Sweats: 1-Minimal Palms Moist Orientation: 1-Uncertain about Date Tacttile Disturbances: 0-None Auditory Disturbances: 0-None Visual Disturbances: 0-None Headache: 2-Mild CIWA-Ar Total Score: 17 BHS Progress Note (SOAP) Subjective: sweating nausea hot and cold tremor requests contact lens solution Objective: 05/30/18 13:50 Vital Signs Temperature 97.4 F L 05/30/18 09:37 Pulse Rate 62 05/30/18 09:37 Respiratory Rate 16 05/30/18 09:37 Blood Pressure 98/60 05/30/18 09:37 O2 Sat by Pulse Oximetry (%) Laboratory Last Values WBC 7.6 K/mm3 (4.0-10.0) 05/30/18 07:00 RBC 4.59 M/mm3 (3.60-5.2) 05/30/18 07:00 Hgb 14.0 GM/dL (10.7-15.3) 05/30/18 07:00 Hct 41.0 % (32.4-45.2) 05/30/18 07:00 MCV 89.3 fl (80-96) 05/30/18 07:00 MCH 30.6 pg (25.7-33.7) 05/30/18 07:00 MCHC 34.3 g/dl (32.0-36.0) 05/30/18 07:00 RDW 13.3 % (11.6-15.6) 05/30/18 07:00 Plt Count 189 K/MM3 (134-434) 05/30/18 07:00 MPV 9.3 fl (7.5-11.1) D 05/30/18 07:00 Sodium 139 mmol/L (136-145) 05/30/18 07:00 Potassium 3.8 mmol/L (3.5-5.1) 05/30/18 07:00 Chloride 104 mmol/L (98-107) 05/30/18 07:00 Carbon Dioxide 24 mmol/L (21-32) 05/30/18 07:00 Anion Gap 11 MMOL/L (8-16) 05/30/18 07:00 BUN 11 mg/dL (7-18) 05/30/18 07:00 Creatinine 1.1 mg/dL (0.55-1.3) 05/30/18 07:00 Creat Clearance w eGFR 58.32 (>60) 05/30/18 07:00 Random Glucose 133 mg/dL (74-106) H 05/30/18 07:00 Calcium 8.9 mg/dL (8.5-10.1) 05/30/18 07:00 Total Bilirubin 0.8 mg/dL (0.2-1) 05/30/18 07:00 AST 15 U/L (15-37) 05/30/18 07:00 ALT 17 U/L (13-61) 05/30/18 07:00 Alkaline Phosphatase 85 U/L (45-117) 05/30/18 07:00 Total Protein 7.4 g/dl (6.4-8.2) 05/30/18 07:00 Albumin 3.9 g/dl (3.4-5.0) 05/30/18 07:00 RPR Titer Nonreactive (NONREACTIVE) 05/30/18 07:00 lab noted Assessment: 05/30/18 13:52 withdrawal sx Plan: continue detox
[2018-05-30] MEDS: chlordiazePOXIDE HCL 25 MG CAPSULE PO PRN ×2 (14:47→19:41)
[2018-05-30] MEDS ORDERED: BACLOFEN 10 MG TABLET (FP) PO ONE (15:25)
[2018-05-30] MEDS: IBUPROFEN 400 MG TABLET (FP) PO PRN ×2 (17:10→22:37)
[2018-05-30] MEDS: chlordiazePOXIDE HCL 10 MG CAPSULE PO SCH (22:33)
[2018-05-30] MEDS: THIAMINE HCL 100 MG TABLET (FP) PO SCH (22:33)
[2018-05-30] MEDS: MELATONIN 5 MG TABLETS PO PRN (22:38)
[2018-05-31] MEDS ORDERED: METHADONE HCL 40 MG DISPERSABLE TABLET ONE (03:46)
[2018-05-31] MEDS ORDERED: METHADONE HCL 5 MG TABLET ONE (03:46)
[2018-05-31] MEDS ORDERED: METHADONE HCL 10 MG TABLET ONE (03:46)
[2018-05-31] MEDS: chlordiazePOXIDE HCL 10 MG CAPSULE PO SCH ×3 (06:01→17:12)
[2018-05-31] MEDS: METHADONE 160 MG, METHADONE 10 MG, METHADONE 5 MG PO SCH (06:01)
[2018-05-31] MEDS: IBUPROFEN 400 MG TABLET (FP) PO PRN ×2 (06:05→17:12)
[2018-05-31] MEDS: NICOTINE POLACRILEX 2 MG GUM BC PRN (06:07)
--- NOTE | 2018-05-31 08:59 | PN ---
[facility] CIWA - CIWA Score Nausea/Vomitin-Mild Nausea/No Vomiting Muscle Tremors: 3 Anxiety: 3 Agitation: 3 Paroxysmal Sweats: 1-Minimal Palms Moist Orientation: 0-Oriented Tacttile Disturbances: 0-None Auditory Disturbances: 0-None Visual Disturbances: 0-None Headache: 2-Mild CIWA-Ar Total Score: 13 BHS Progress Note (SOAP) Subjective: reported fracture right hand "metacarpal and 5th finger" 3-4 weeks [address] [facility] ER with "wrap" patient removed the wrap herself, return to [facility] ER treated with 1/2 cast, patient removed the soft cast herself, today patient approached life underwriter stated that worry about the fracture not heal properly , right hand x ray ordered, patient has orthopedic appointment at [facility] on Jun 15, 2018 stated mild tremor less sweat otherwise feeling ok Objective: 05/31/18 08:59 Vital Signs Temperature 97 F L 05/31/18 06:29 Pulse Rate 63 05/31/18 06:29 Respiratory Rate 18 05/31/18 06:29 Blood Pressure 103/71 05/31/18 06:29 O2 Sat by Pulse Oximetry (%) Laboratory Last Values WBC 7.6 K/mm3 (4.0-10.0) 05/30/18 07:00 RBC 4.59 M/mm3 (3.60-5.2) 05/30/18 07:00 Hgb 14.0 GM/dL (10.7-15.3) 05/30/18 07:00 Hct 41.0 % (32.4-45.2) 05/30/18 07:00 MCV 89.3 fl (80-96) 05/30/18 07:00 MCH 30.6 pg (25.7-33.7) 05/30/18 07:00 MCHC 34.3 g/dl (32.0-36.0) 05/30/18 07:00 RDW 13.3 % (11.6-15.6) 05/30/18 07:00 Plt Count 189 K/MM3 (134-434) 05/30/18 07:00 MPV 9.3 fl (7.5-11.1) D 05/30/18 07:00 Sodium 139 mmol/L (136-145) 05/30/18 07:00 Potassium 3.8 mmol/L (3.5-5.1) 05/30/18 07:00 Chloride 104 mmol/L (98-107) 05/30/18 07:00 Carbon Dioxide 24 mmol/L (21-32) 05/30/18 07:00 Anion Gap 11 MMOL/L (8-16) 05/30/18 07:00 BUN 11 mg/dL (7-18) 05/30/18 07:00 Creatinine 1.1 mg/dL (0.55-1.3) 05/30/18 07:00 Creat Clearance w eGFR 58.32 (>60) 05/30/18 07:00 Random Glucose 133 mg/dL (74-106) H 05/30/18 07:00 Calcium 8.9 mg/dL (8.5-10.1) 05/30/18 07:00 Total Bilirubin 0.8 mg/dL (0.2-1) 05/30/18 07:00 AST 15 U/L (15-37) 05/30/18 07:00 ALT 17 U/L (13-61) 05/30/18 07:00 Alkaline Phosphatase 85 U/L (45-117) 05/30/18 07:00 Total Protein 7.4 g/dl (6.4-8.2) 05/30/18 07:00 Albumin 3.9 g/dl (3.4-5.0) 05/30/18 07:00 RPR Titer Nonreactive (NONREACTIVE) 05/30/18 07:00 lab noted Assessment: 05/31/18 09:00 withdrawal sx 05/31/18 09:00 s/p right hand "fracture" Plan: continue detox right hand x ray
[2018-05-31] MEDS: PRENATAL VITAMINS W/ FOLIC ACID TABLET (FP) PO SCH (10:22)
[2018-05-31] MEDS: lamoTRIgine 25 MG TABLET PO SCH ×2 (10:23→22:20)
[2018-05-31] MEDS: GABAPENTIN 300 MG CAPSULE (FP) PO SCH ×4 (10:23→22:20)
[2018-05-31] MEDS: chlordiazePOXIDE HCL 25 MG CAPSULE PO PRN ×2 (14:03→19:56)
[2018-05-31] MEDS: THIAMINE HCL 100 MG TABLET (FP) PO SCH (22:19)
[2018-05-31] MEDS: chlordiazePOXIDE HCL 25 MG CAPSULE PO SCH (22:20)
[2018-05-31] MEDS: MELATONIN 5 MG TABLETS PO PRN (22:21)
[2018-06-01] MEDS ORDERED: METHADONE HCL 40 MG DISPERSABLE TABLET ONE (04:31)
[2018-06-01] MEDS ORDERED: METHADONE HCL 10 MG TABLET ONE (04:31)
[2018-06-01] MEDS ORDERED: METHADONE HCL 5 MG TABLET ONE (04:32)
[2018-06-01] MEDS: METHADONE 160 MG, METHADONE 10 MG, METHADONE 5 MG PO SCH (05:20)
[2018-06-01] MEDS: chlordiazePOXIDE HCL 25 MG CAPSULE PO SCH ×3 (05:20→17:03)
[2018-06-01] MEDS: IBUPROFEN 400 MG TABLET (FP) PO PRN (05:22)
[2018-06-01] MEDS: GABAPENTIN 300 MG CAPSULE (FP) PO SCH ×4 (10:28→22:16)
[2018-06-01] MEDS: PRENATAL VITAMINS W/ FOLIC ACID TABLET (FP) PO SCH (10:28)
[2018-06-01] MEDS: lamoTRIgine 25 MG TABLET PO SCH ×2 (10:28→22:17)
[2018-06-01] MEDS ORDERED: TRIMETHOBENZAMIDE HCL 300 MG CAPSULE PO PRN (14:32)
[2018-06-01] MEDS: chlordiazePOXIDE HCL 25 MG CAPSULE PO PRN (14:38)
--- NOTE | 2018-06-01 17:24 | PN ---
BHS Progress Note (SOAP) Subjective: Body Aches, Sweating, Anxious, Vomiting, Constipation, Interrupted Sleep. Objective: PATIENT A & O X 3, OBSERVED AMBULATING ON UNIT. IN NO ACUTE DISTRESS. 06/01/18 17:18 Vital Signs Temperature 98.4 F 06/01/18 13:26 Pulse Rate 74 06/01/18 13:26 Respiratory Rate 20 06/01/18 13:26 Blood Pressure 102/70 06/01/18 13:26 O2 Sat by Pulse Oximetry (%) Laboratory Tests 05/30/18 05/30/18 05/30/18 07:00 07:00 07:00 WBC 7.6 RBC 4.59 Hgb 14.0 Hct 41.0 MCV 89.3 MCH 30.6 MCHC 34.3 RDW 13.3 Plt Count 189 MPV 9.3 D Sodium 139 Potassium 3.8 Chloride 104 Carbon Dioxide 24 Anion Gap 11 BUN 11 Creatinine 1.1 Creat Clearance w eGFR 58.32 Random Glucose 133 H Calcium 8.9 Total Bilirubin 0.8 AST 15 ALT 17 Alkaline Phosphatase 85 Total Protein 7.4 Albumin 3.9 RPR Titer Nonreactive LABS NOTED. Assessment: 06/01/18 17:19 WITHDRAWAL SYMPTOMS. Plan: CONTINUE DETOX. INCREASE DAILY PO FLUID INTAKE. PRN TIGAN PO FOR NAUSEA / VOMITING. REPORT FOR X-RAY OF RIGHT HAND NOTED: X-RAY REVEALS 'POORLY HEALING FRACTURE' OF 5TH METATARSAL BONE. PATIENT REPORTS THAT SHE HAD A CASRT PLACED ON LEFT HAND APPROX. 3 WEEKS AGO AT [facility] ([place], [place]). PATIENT RETURNED TO [facility] SHORTLY THEREAFTER TO HAVE CAST EXAMINED BECAUSE SHE FELT IF IT DID NOT PROVIDE ADEQUATE SUPPORT FOR HER HAND. PATIENT REPORTS THAT A NEW CAST WAS PLACED ON HER LEFT HAND AT THAT TIME, BUT SHE REMOVED IT HERSELF IN THE LAST FEW DAYS BECAUSE THE CAST FELT IF IT WAS "WEIGHING HER HAND DOWN TOO MUCH." PATIENT ADVISED TO RETURN TO [facility] OR FOLLOW-UP WITH HER SUPERVISOR DRY PASTE OR RETORT OPERATOR SOON POSSIBLE AFTER DISCHARGE FROM DETOX UNIT FOR FURTHER EVALUATION OF HAND. PATIENT VERBALIZED UNDERSTANDING OF RECOMMENDATION. COPY OF REPORT FOR X-RAY OF RIGHT HAND GIVEN TO PATIENT TO TAKE WITH HER AT TIME OF DISCHARGE FROM DETOX UNIT. ODALIS BANDAGE ORDERED FOR PATIENT FOR TEMPORARY SUPPORT OF INJURY OF RIGHT HAND FOR THE INTERIM.
[2018-06-01] MEDS ORDERED: ONDANSETRON *ODT* 4 MG TABLET SL PRN (18:09)
[2018-06-01] MEDS: hydrOXYzine PAMOATE 50 MG CAPSULE (FP) PO PRN (19:23)
[2018-06-01] MEDS: THIAMINE HCL 100 MG TABLET (FP) PO SCH (22:16)
[2018-06-01] MEDS: NAPROXEN 250 MG TABLET (FP) PO SCH (22:16)
[2018-06-01] MEDS: chlordiazePOXIDE 5 MG CAPSULE PO SCH (22:17)
[2018-06-01] MEDS: MELATONIN 5 MG TABLETS PO PRN (22:18)
[2018-06-02] MEDS ORDERED: METHADONE HCL 40 MG DISPERSABLE TABLET ONE (04:56)
[2018-06-02] MEDS ORDERED: METHADONE HCL 10 MG TABLET ONE (04:56)
[2018-06-02] MEDS ORDERED: METHADONE HCL 5 MG TABLET ONE (04:57)
[2018-06-02] MEDS: METHADONE 160 MG, METHADONE 10 MG, METHADONE 5 MG PO SCH (05:50)
[2018-06-02] MEDS: chlordiazePOXIDE 5 MG CAPSULE PO SCH ×3 (05:50→17:36)
[2018-06-02] MEDS: ACETAMINOPHEN 325 MG TABLET (FP) PO PRN (05:51)
[2018-06-02] MEDS: lamoTRIgine 25 MG TABLET PO SCH ×2 (10:25→22:19)
[2018-06-02] MEDS: NAPROXEN 250 MG TABLET (FP) PO SCH ×2 (10:25→22:20)
[2018-06-02] MEDS: GABAPENTIN 300 MG CAPSULE (FP) PO SCH ×4 (10:25→22:20)
[2018-06-02] MEDS: PRENATAL VITAMINS W/ FOLIC ACID TABLET (FP) PO SCH (10:25)
[2018-06-02] MEDS: CYCLOBENZAPRINE HCL 10 MG TABLET (FP) PO PRN ×2 (14:37→22:19)
[2018-06-02] MEDS: hydrOXYzine PAMOATE 50 MG CAPSULE (FP) PO PRN ×2 (14:39→22:20)
--- NOTE | 2018-06-02 16:05 | PN ---
BHS Progress Note (SOAP) Subjective: Interrupted Sleep, Tremors, Body Aches, Constipation, Nausea. Objective: PATIENT A & O X 3, OBSERVED AMBULATING ON UNIT. IN NO ACUTE DISTRESS. 06/02/18 16:03 Vital Signs Temperature 97.6 F 06/02/18 14:05 Pulse Rate 62 06/02/18 14:05 Respiratory Rate 18 06/02/18 14:05 Blood Pressure 91/53 L 06/02/18 14:05 O2 Sat by Pulse Oximetry (%) Laboratory Tests 05/30/18 05/30/18 05/30/18 07:00 07:00 07:00 WBC 7.6 RBC 4.59 Hgb 14.0 Hct 41.0 MCV 89.3 MCH 30.6 MCHC 34.3 RDW 13.3 Plt Count 189 MPV 9.3 D Sodium 139 Potassium 3.8 Chloride 104 Carbon Dioxide 24 Anion Gap 11 BUN 11 Creatinine 1.1 Creat Clearance w eGFR 58.32 Random Glucose 133 H Calcium 8.9 Total Bilirubin 0.8 AST 15 ALT 17 Alkaline Phosphatase 85 Total Protein 7.4 Albumin 3.9 RPR Titer Nonreactive LABS NOTED. Assessment: 06/02/18 16:03 WITHDRAWAL SYMPTOMS. Plan: CONTINUE DETOX. INCREASE DAILY PO FLUID INTAKE. PRN MOM FOR CONSTIPATION. PRN FLEXERIL PO FOR BODY ACHES / MUSCLE SPASMS.
[2018-06-02] MEDS: MAGNESIUM HYDROX 2400MG/30ML ORAL SUSPENSION 30 ML CUP PO PRN (17:37)
[2018-06-02] MEDS: THIAMINE HCL 100 MG TABLET (FP) PO SCH (22:19)
[2018-06-02] MEDS: chlordiazePOXIDE HCL 10 MG CAPSULE PO SCH (23:04)
[2018-06-03] MEDS ORDERED: METHADONE HCL 5 MG TABLET ONE (03:33)
[2018-06-03] MEDS ORDERED: METHADONE HCL 10 MG TABLET ONE (03:33)
[2018-06-03] MEDS ORDERED: METHADONE HCL 40 MG DISPERSABLE TABLET ONE (03:33)
[2018-06-03] MEDS: chlordiazePOXIDE HCL 10 MG CAPSULE PO SCH ×3 (05:47→17:09)
[2018-06-03] MEDS: METHADONE 160 MG, METHADONE 10 MG, METHADONE 5 MG PO SCH (05:47)
[2018-06-03] MEDS: CYCLOBENZAPRINE HCL 10 MG TABLET (FP) PO PRN ×3 (05:48→17:10)
[2018-06-03] MEDS: ACETAMINOPHEN 325 MG TABLET (FP) PO PRN (05:48)
[2018-06-03] MEDS: lamoTRIgine 25 MG TABLET PO SCH ×2 (10:45→22:17)
[2018-06-03] MEDS: NAPROXEN 250 MG TABLET (FP) PO SCH ×2 (10:45→22:17)
[2018-06-03] MEDS: MAGNESIUM HYDROX 2400MG/30ML ORAL SUSPENSION 30 ML CUP PO PRN (10:46)
[2018-06-03] MEDS: PRENATAL VITAMINS W/ FOLIC ACID TABLET (FP) PO SCH (10:46)
[2018-06-03] MEDS: GABAPENTIN 300 MG CAPSULE (FP) PO SCH ×4 (10:46→22:17)
[2018-06-03] MEDS: hydrOXYzine PAMOATE 50 MG CAPSULE (FP) PO PRN ×2 (10:47→22:19)
--- NOTE | 2018-06-03 18:05 | PN ---
[facility] Progress Note (SOAP) Subjective: Nausea, anxious, restless, headache, chills, sweating. Patient c/o dysuria and urgency with micturition. As per patient, she is scheduled for discharge tomorrow to [facility] rehab and still having withdrawal symptoms. Patient is requesting to continue librium as the last 10mg dose will end at 5pm today. Objective: 06/03/18 18:01 Last Vital Signs Temp Pulse Resp BP Pulse Ox 96.8 F L 71 18 87/58 L 06/03/18 15:07 06/03/18 15:07 06/03/18 15:07 06/03/18 15:07 Hypotension noted: asymptomatic, encouraged PO water hydration EKG: NSR at 66 bpm, QTc 471 Laboratory Tests 05/30/18 05/30/18 05/30/18 07:00 07:00 07:00 WBC 7.6 RBC 4.59 Hgb 14.0 Hct 41.0 MCV 89.3 MCH 30.6 MCHC 34.3 RDW 13.3 Plt Count 189 MPV 9.3 D Sodium 139 Potassium 3.8 Chloride 104 Carbon Dioxide 24 Anion Gap 11 BUN 11 Creatinine 1.1 Creat Clearance w eGFR 58.32 Random Glucose 133 H Calcium 8.9 Total Bilirubin 0.8 AST 15 ALT 17 Alkaline Phosphatase 85 Total Protein 7.4 Albumin 3.9 RPR Titer Nonreactive Labs reviewed: glucose 133, prerenal azotemia Assessment: 06/03/18 18:02 Withdrawal symptoms Noted with prerenal azotemia and hyperglycemia. C/O dysuria and urgency with urinating. Plan: Continue detox Librium 5mg PO q6hr after 10mg librium ends Hypotension: asymptomatic, encouraged to drink more water Prerenal azotemia: encouraged PO water hydration Hyperglycemia: possibly due to withdrawal, repeat fasting glucose in AM Acute UTI: send UA/C&S, start levaquin 500mg PO daily x 3 days
--- NOTE | 2018-06-03 19:40 | EKG ---
Test Reason : Blood Pressure : / mmHG Vent. Rate : 066 BPM Atrial Rate : 066 BPM P-R Int : 164 ms QRS Dur : 082 ms QT Int : 450 ms P-R-T Axes : 056 073 039 degrees QTc Int : 471 ms NORMAL SINUS RHYTHM NONSPECIFIC T WAVE ABNORMALITY PROLONGED QT ABNORMAL ECG WHEN COMPARED WITH ECG OF 29-JUL-2016 20:06, NO SIGNIFICANT CHANGE WAS FOUND Confirmed by LAURA RAY, HARRY ([id number]) on 06/03/2018 7:39:34 PM Referred By: DR. PEREZ Confirmed By:HARRY SANCHEZ MD
[2018-06-03] MEDS: chlordiazePOXIDE 5 MG CAPSULE PO SCH (22:16)
[2018-06-03] MEDS: THIAMINE HCL 100 MG TABLET (FP) PO SCH (22:16)
[2018-06-03 22:57] LABS: URINE APPEARANCE SLCLOUDY; URINE BILIRUBIN NEGATIVE (<2.0 mg/dL); URINE COLOR LTYELLOW; URINE GLUCOSE (UA) NEGATIVE (NEGATIVE); URINE KETONE NEGATIVE (NEGATIVE); URINE LEUK ESTERASE 2+ (NEGATIVE); URINE NITRITE NEGATIVE (NEGATIVE); URINE PROTEIN NEGATIVE (NEGATIVE); URINE UROBILINOGEN NEGATIVE mg/dL (0.2-1.0)
[2018-06-03] MEDS ORDERED: METHADONE HCL 10 MG TABLET (FOR DETOX USE ONLY) PO SCH (23:00)
[2018-06-03 23:01] LABS: EPI CELLS RARE /HPF (FEW); URINE BACTERIA FEW /hpf (NONE SEEN)
[2018-06-04] MEDS: ACETAMINOPHEN 325 MG TABLET (FP) PO PRN (02:36)
[2018-06-04] MEDS: CYCLOBENZAPRINE HCL 10 MG TABLET (FP) PO PRN (02:36)
[2018-06-04] MEDS ORDERED: METHADONE HCL 10 MG TABLET ONE (04:13)
[2018-06-04] MEDS ORDERED: METHADONE HCL 40 MG DISPERSABLE TABLET ONE (04:14)
[2018-06-04] MEDS ORDERED: METHADONE HCL 5 MG TABLET ONE (04:15)
[2018-06-04] MEDS: METHADONE 160 MG, METHADONE 10 MG, METHADONE 5 MG PO SCH (05:38)
[2018-06-04] MEDS: chlordiazePOXIDE 5 MG CAPSULE PO SCH (05:39)
[2018-06-04] MEDS ORDERED: chlordiazePOXIDE HCL 10 MG CAPSULE PO ONE (06:00)
[2018-06-04 09:20] VITALS: BP 101/70; PULSE 101; TEMP 98.6
--- NOTE | 2018-06-04 11:38 | DS ---
[facility] Detox Discharge Summary Admission Date: 05/29/18 Discharge Date: 06/04/18 - History Present History: Alcohol Dependence Additional Comments: 32 years old female admitted on 05/29/18 for alcohol withdrawal stabilization completed detox regimen tolerated well [facility] provides transportation from detox facility to rehab facility - Physical Exam Results Vital Signs: Vital Signs Temperature 98.6 F 06/04/18 09:19 Pulse Rate 101 H 06/04/18 09:19 Respiratory Rate 18 06/04/18 09:19 Blood Pressure 101/70 06/04/18 09:19 O2 Sat by Pulse Oximetry (%) Pertinent Admission Physical Exam Findings: alcohol withdrawal sx Laboratory Last Values WBC 7.6 K/mm3 (4.0-10.0) 05/30/18 07:00 RBC 4.59 M/mm3 (3.60-5.2) 05/30/18 07:00 Hgb 14.0 GM/dL (10.7-15.3) 05/30/18 07:00 Hct 41.0 % (32.4-45.2) 05/30/18 07:00 MCV 89.3 fl (80-96) 05/30/18 07:00 MCH 30.6 pg (25.7-33.7) 05/30/18 07:00 MCHC 34.3 g/dl (32.0-36.0) 05/30/18 07:00 RDW 13.3 % (11.6-15.6) 05/30/18 07:00 Plt Count 189 K/MM3 (134-434) 05/30/18 07:00 MPV 9.3 fl (7.5-11.1) D 05/30/18 07:00 Sodium 139 mmol/L (136-145) 05/30/18 07:00 Potassium 3.8 mmol/L (3.5-5.1) 05/30/18 07:00 Chloride 104 mmol/L (98-107) 05/30/18 07:00 Carbon Dioxide 24 mmol/L (21-32) 05/30/18 07:00 Anion Gap 11 MMOL/L (8-16) 05/30/18 07:00 BUN 11 mg/dL (7-18) 05/30/18 07:00 Creatinine 1.1 mg/dL (0.55-1.3) 05/30/18 07:00 Creat Clearance w eGFR 58.32 (>60) 05/30/18 07:00 Random Glucose 133 mg/dL (74-106) H 05/30/18 07:00 Calcium 8.9 mg/dL (8.5-10.1) 05/30/18 07:00 Total Bilirubin 0.8 mg/dL (0.2-1) 05/30/18 07:00 AST 15 U/L (15-37) 05/30/18 07:00 ALT 17 U/L (13-61) 05/30/18 07:00 Alkaline Phosphatase 85 U/L (45-117) 05/30/18 07:00 Total Protein 7.4 g/dl (6.4-8.2) 05/30/18 07:00 Albumin 3.9 g/dl (3.4-5.0) 05/30/18 07:00 Urine Color Ltyellow 06/03/18 12:00 Urine Appearance Slcloudy 06/03/18 12:00 Urine pH 6.0 (5.0-8.0) 06/03/18 12:00 Ur Specific Irving 1.005 (1.010-1.035) L 06/03/18 12:00 Urine Protein Negative (NEGATIVE) 06/03/18 12:00 Urine Glucose (UA) Negative (NEGATIVE) 06/03/18 12:00 Urine Ketones Negative (NEGATIVE) 06/03/18 12:00 Urine Blood 3+ (NEGATIVE) H 06/03/18 12:00 Urine Nitrite Negative (NEGATIVE) 06/03/18 12:00 Urine Bilirubin Negative (<2.0 mg/dL) 06/03/18 12:00 Urine Urobilinogen Negative mg/dL (0.2-1.0) 06/03/18 12:00 Ur Leukocyte Esterase 2+ (NEGATIVE) H 06/03/18 12:00 Urine WBC (Auto) 18 /hpf (3-5) 06/03/18 12:00 Urine RBC (Auto) 17 /hpf (0-3) 06/03/18 12:00 Ur Epithelial Cells Rare /HPF (FEW) 06/03/18 12:00 Urine Bacteria Few /hpf (NONE SEEN) 06/03/18 12:00 RPR Titer Nonreactive (NONREACTIVE) 05/30/18 07:00 lab noted - Treatment Hospital Course: Detox Protocol Followed, Detoxed Safely, Responded well, Discharged Condition Good, Rehab Referral Accepted Patient has Accepted a Rehab Referral to: [facility] - Medication Discharge Medications: Ambulatory Orders Gabapentin [Neurontin -] 600 mg PO QID 07/29/16 Lamotrigine [Lamictal -] 50 mg PO BID 05/29/18 Gabapentin [Neurontin] 600 mg PO QID #120 tablet 05/30/18 Lamotrigine [Lamictal -] 100 mg PO DAILY #30 tablet 05/30/18 levoFLOXacin [Levaquin -] 500 mg PO DAILY@0600 #7 tablet 06/04/18 - Diagnosis (1) Alcohol dependence with withdrawal, uncomplicated Status: Acute (2) Substance induced mood disorder Status: Suspected (3) Methadone maintenance therapy patient Status: Chronic - AMA Did Patient Leave Against Medical Advice: No
== END 2018-06-04 09:49 | disposition home or self-care (01) | DRG 773 ==
LOC: YASAS 13:42 → Y3N 17:23
PROVIDERS: ADMIT Neuromusculoskeletal Medicine & OMM; ATTEND Neuromusculoskeletal Medicine & OMM
PROC: HZ2ZZZZ Detoxification Services for Substance Abuse Treatment (ICD-10-PCS; principal; 2018-05-29)
DX: F10.230 Alcohol dependence with withdrawal, uncomplicated (principal); F13.230 Sedative, hypnotic or anxiolytic dependence with withdrawal, uncomplicated; F11.20 Opioid dependence, uncomplicated; F17.213 Nicotine dependence, cigarettes, with withdrawal; F19.24 Other psychoactive substance dependence with psychoactive substance-induced mood disorder; I95.9 Hypotension, unspecified; R73.9 Hyperglycemia, unspecified; R79.89 Other specified abnormal findings of blood chemistry; N30.90 Cystitis, unspecified without hematuria; R00.0 Tachycardia, unspecified; E66.3 Overweight; Z68.27 Body mass index [BMI] 27.0-27.9, adult; Z91.013 Allergy to seafood
CPT/HCPCS: 36415; 73130-TC-RT-FY; 80053; 81003; 81015; 85027; 86593; 87086; 87186; 93005; 93010; J0475; Q0162

== ENCOUNTER 2018-08-27 13:21 | Inpatient (IN) | payer OTHER ==
[2018-08-27 14:43] VITALS: BMI 27.4
--- NOTE | 2018-08-27 15:40 | HP ---
CIWA Score Nausea/Vomitin-No Nausea/No Vomiting Muscle Tremors: 2 Anxiety: 3 Agitation: 2 Paroxysmal Sweats: 2 Orientation: 0-Oriented Tacttile Disturbances: 1-Very Mild Itch/Numbness Auditory Disturbances: 0-None Visual Disturbances: 0-None Headache: 0-None Present CIWA-Ar Total Score: 10 - Admission Criteria OASAS Guidelines: Admission for Medically Managed Detox: Requires at least one of the followin. CIWA greater than 12 2. Seizures within the past 24 hours 3. Delirium tremens within the past 24 hours 4. Hallucinations within the past 24 hours 5. Acute intervention needed for co occurring medical disorder 6. Acute intervention needed for co occurring psychiatric disorder 7. Severe withdrawal that cannot be handled at a lower level of care (continued vomiting, continued diarrhea, abnormal vital signs) requiring intravenous medication and/or fluids 8. Patient presents the following: Acute intervention needed for co-occurring med or psych disorder Admission Criteria Met: Admission criteria met Admission ROS S - HPI Chief Complaint: " I'm tire of doing this, I am embarrassed" Allergies/Adverse Reactions: Allergies Allergy/AdvReac Type Severity Reaction Status Date / Time Fish Containing Products Allergy Severe Swelling Verified 08/27/18 14:32 No Known Drug Allergies Allergy Verified 08/27/18 14:32 History of Present Illness: 33 yo female with hx of alcohol, xanax, klonopin, marijuana and alcohol dependence is here seeking detox. Completed rehab 06/25/18 at [facility], reports relapse soon after discharge. Longest period of sobriety 8 months during 2018. VANESA = 0.00. utox THC, MTD, BZO. MMTP [facility] 2 on methadone 175 mg qd, last medicated today. Reports hx of withdrawal seizure with last episode four months ago. Reports hx of anxiety, depression, PTSD, on meds. Denies suicidal / homicidal ideation. Exam Limitations: No Limitations - Ebola screening Have you traveled outside of the country in the last 21 days: No Have you had contact with anyone from an Ebola affected area: No - Review of Systems Constitutional: Chills, Loss of Appetite, Changes in sleep, Weakness EENT: reports: No Symptoms Reported Respiratory: reports: No Symptoms reported Cardiac: reports: No Symptoms Reported GI: reports: Diarrhea, Poor Appetite, Poor Fluid Intake : reports: No Symptoms Reported Musculoskeletal: reports: No Symptoms Reported Integumentary: reports: Flushing, Pruritus Neuro: reports: Weakness Endocrine: reports: Increased Thirst Hematology: reports: No Symptoms Reported Psychiatric: reports: Orientated x3, Depressed Other Systems: Reviewed and Negative Patient History - Patient Medical History Hx Anemia: No Hx Asthma: No Hx Chronic Obstructive Pulmonary Disease (COPD): No Hx Cancer: No Hx Cardiac Disorders: No Hx Congestive Heart Failure: No Hx Hypertension: No Hx Hypercholesterolemia: No Hx Pacemaker: No HX Cerebrovascular Accident: No Hx Seizures: No Hx Dementia: No Hx Diabetes: No Hx Gastrointestinal Disorders: No Hx Liver Disease: No Hx Genitourinary Disorders: No Hx Sexually Transmitted Disorders: No Hx Renal Disease (ESRD): No Hx Hepatitis C: No Hx Depression: Yes Hx Suicide Attempt: No Hx Bipolar Disorder: No Hx Schizophrenia: No - Patient Surgical History Past Surgical History: Yes Hx Neurologic Surgery: No Hx Cataract Extraction: No Hx Cardiac Surgery: No Hx Lung Surgery: No Hx Breast Surgery: No Hx Breast Biopsy: No Hx Abdominal Surgery: No Hx Appendectomy: No Hx Cholecystectomy: Yes (2011) Hx Genitourinary Surgery: No Hx Section: No Hx Orthopedic Surgery: No Hx Hysterectomy: No Anesthesia Reaction: No - PPD History Previous Implant?: No Documented Results: Negative w/proof Date: 05/31/18 PPD to be Administered?: No - Reproductive History Patient is a Female of Child Bearing Age (11 -55 yrs old): Yes Last Menstrual Period: 08/10/18 Patient : No - Smoking Cessation Smoking history: Current every day smoker Have you smoked in the past 12 months: Yes Aproximately how many cigarettes per day: 5 Cigars Per Day: 0 Hx Chewing Tobacco Use: No Initiated information on smoking cessation: Yes 'Breaking Loose' booklet given: 08/27/18 - Substance & Tx. History Hx Alcohol Use: Yes Hx Substance Use: Yes Substance Use Type: Alcohol, Tranquilizers Hx Substance Use Treatment: Yes (completed rehab 06/25/18 at [facility]) - Substances abused Benzodiazepine (Klonopin) Substance route: Oral Frequency: 3-6 times per week Amount used: 20 ( 2mg each ) Age of first use: 29 Date of last use: 08/27/18 Alprazolam (Xanax) Substance route: Oral Frequency: Daily Amount used: 18 sticks ( 2mg each) Age of first use: 29 Date of last use: 08/27/18 Alcohol Substance route: Oral Frequency: 3-6 times per week Amount used: one fifth of vodka Age of first use: 18 (drink increase to this amount "couple of weeks") Date of last use: 08/25/18 Family Disease History - Family Disease History Family Disease History: Heart Disease: Father, [place]: Mother Admission Physical Exam [facility] - Vital Signs Vital Signs: Vital Signs - 24 hr 08/27/18 14:33 Temperature 98.1 F Pulse Rate 61 Respiratory 18 Rate Blood Pressure 100/71 - Physical General Appearance: Yes: Nourished, Disheveled, Sweating, Anxious HEENTM: Yes: EOMI, Hearing grossly Normal, Normal ENT Inspection, Normocephalic , Normal Voice, DAVY, Pharynx Normal, Tm's normal Respiratory: Yes: Chest Non-Tender, Lungs Clear, Normal Breath Sounds, No Respiratory Distress, No Accessory Muscle Use Neck: Yes: Within Normal Limits Breast: Yes: Breast Exam Deferred Cardiology: Yes: Regular Rhythm, Regular Rate Abdominal: Yes: Normal Bowel Sounds, Non Tender, Flat, Soft Genitourinary: Yes: Within Normal Limits Back: Yes: Normal Inspection Musculoskeletal: Yes: full range of Motion, Gait Steady, Pelvis Stable Extremities: Yes: Normal Capillary Refill, Normal Inspection, Normal Range of Motion, Non-Tender Neurological: Yes: enterprise project manager II-XII NML intact, Fully Oriented, Alert, Motor Strength 5/5, Depressed Affect Integumentary: Yes: Normal Color, Warm, Diaphoresis Lymphatic: Yes: Within Normal Limits - Diagnostic (1) Alcohol dependence with withdrawal, uncomplicated Current Visit: Yes Status: Acute (2) Opioid dependence on agonist therapy Current Visit: Yes Status: Acute (3) Sedative, hypnotic or anxiolytic dependence with withdrawal, uncomplicated Current Visit: Yes Status: Acute Comment: librium regimen as per patient preference (4) Nicotine dependence Current Visit: Yes Status: Chronic Qualifiers: Nicotine product type: cigarettes Substance use status: in withdrawal Qualified Code(s): F17.213 - Nicotine dependence, cigarettes, with withdrawal (5) Depression Current Visit: Yes Status: Chronic Qualifiers: Depression Type: unspecified Qualified Code(s): F32.9 - Major depressive disorder, single episode, unspecified [facility] Ad[facility] S - Detox or Rehab [facility] Level of Care: Medically Managed Detox Regimen/Protocol: Librium Inpatient Rehab Admission - Rehab Decision to Admit Inpatient rehab admission?: No
[2018-08-27] MEDS ORDERED: MAGNESIUM CITRATE 300 ML BOTTLE PO PRN (15:46)
[2018-08-27] MEDS ORDERED: METHOCARBAMOL 500 MG TABLET PO PRN (15:46)
[2018-08-27] MEDS ORDERED: MAGNESIUM HYDROX 2400MG/30ML ORAL SUSPENSION 30 ML CUP PO PRN (15:46)
[2018-08-27] MEDS ORDERED: BISMUTH SUBSALICYLATE 524 MG/30 ML UD PO PRN (15:46)
[2018-08-27] MEDS ORDERED: MAG HYDROX/AL HYDROX/SIMETH 30 ML UNIT-DOSE CUP PO PRN (15:46)
[2018-08-27] MEDS ORDERED: NICOTINE POLACRILEX 2 MG GUM BUC PRN (15:46)
[2018-08-27] MEDS ORDERED: MENTHOL/PHENOL 1 EACH UD MM PRN (15:46)
[2018-08-27] MEDS ORDERED: hydrOXYzine PAMOATE 25 MG CAPSULE (FP) PO PRN (15:46)
[2018-08-27] MEDS ORDERED: ACETAMINOPHEN 325 MG TABLET (FP) PO PRN (15:46)
[2018-08-27] MEDS: chlordiazePOXIDE HCL 10 MG CAPSULE PO PRN (17:26)
[2018-08-27] MEDS: MELATONIN 5 MG TABLETS PO PRN (22:26)
[2018-08-27] MEDS: THIAMINE HCL 100 MG TABLET (FP) PO SCH (22:26)
[2018-08-27] MEDS: chlordiazePOXIDE HCL 25 MG CAPSULE PO SCH (22:26)
[2018-08-28] MEDS: chlordiazePOXIDE HCL 25 MG CAPSULE PO SCH ×2 (05:31→12:35)
[2018-08-28] MEDS ORDERED: METHADONE HCL 10 MG TABLET PO SCH (07:45)
[2018-08-28] MEDS ORDERED: METHADONE 160 MG, METHADONE 10 MG, METHADONE 5 MG PO SCH ×2 (08:00)
[2018-08-28] MEDS ORDERED: METHADONE HCL 10 MG TABLET ONE (08:01)
[2018-08-28] MEDS ORDERED: METHADONE HCL 40 MG DISPERSABLE TABLET ONE (08:01)
[2018-08-28] MEDS ORDERED: METHADONE HCL 5 MG TABLET ONE (08:01)
[2018-08-28] MEDS: METHADONE 160 MG, METHADONE 10 MG, METHADONE 5 MG PO SCH (08:02)
[2018-08-28 10:12] LABS: ALBUMIN 3.6 g/dl (3.4-5.0); ALK PHOS 68 U/L (45-117); ANION GAP 5 MMOL/L (8-16); BILIRUBIN,TOTAL 0.6 mg/dL (0.2-1); BLOOD UREA NITROGEN 8 mg/dL (7-18); CALCIUM 9.2 mg/dL (8.5-10.1); CHLORIDE 106 mmol/L (98-107); CO2 30 mmol/L (21-32); GLUCOSE,RANDOM 100 mg/dL (74-106); POTASSIUM 3.9 mmol/L (3.5-5.1); SGOT/AST 13 U/L (15-37); SGPT/ALT 12 U/L (13-61); SODIUM 141 mmol/L (136-145); TOT PROT 6.8 g/dl (6.4-8.2)
[2018-08-28 10:16] LABS: HEMATOCRIT 39.4 % (32.4-45.2); HEMOGLOBIN 13.5 GM/dL (10.7-15.3); MCH 30.4 pg (25.7-33.7); MCHC 34.2 g/dl (32.0-36.0); MEAN CELL VOLUME 88.9 fl (80-96); MEAN PLT VOLUME 8.9 fl (7.5-11.1); PLATELET COUNT 203 K/MM3 (134-434); RBC 4.43 M/mm3 (3.60-5.2); RDW 13.4 % (11.6-15.6)
[2018-08-28] MEDS: NICOTINE 14 MG/24 HOURS TOPICAL PATCH TD SCH (10:20)
[2018-08-28] MEDS: PRENATAL VITAMINS W/ FOLIC ACID TABLET (FP) PO SCH (10:20)
--- NOTE | 2018-08-28 10:36 | PN ---
S CIWA - CIWA Score Nausea/Vomitin-No Nausea/No Vomiting Muscle Tremors: 4-Moderate,w/Arms Extend Anxiety: 4-Mod. Anxious/Guarded Agitation: 4-Moderately Restless Paroxysmal Sweats: 3 Orientation: 0-Oriented Tacttile Disturbances: 0-None Auditory Disturbances: 0-None Visual Disturbances: 0-None Headache: 0-None Present CIWA-Ar Total Score: 15 BHS Progress Note (SOAP) Subjective: sweats shakes anxiety interrupted sleep body aches Objective: 08/28/18 10:35 Vital Signs Temperature 97.5 F L 08/28/18 09:18 Pulse Rate 77 08/28/18 09:18 Respiratory Rate 16 08/28/18 09:18 Blood Pressure 106/74 08/28/18 09:18 O2 Sat by Pulse Oximetry (%) Laboratory Tests 08/28/18 08/28/18 07:00 07:00 WBC 8.0 RBC 4.43 Hgb 13.5 Hct 39.4 MCV 88.9 MCH 30.4 MCHC 34.2 RDW 13.4 Plt Count 203 MPV 8.9 Sodium 141 Potassium 3.9 Chloride 106 Carbon Dioxide 30 Anion Gap 5 L BUN 8 Creatinine 1.0 Creat Clearance w eGFR 64.67 Random Glucose 100 Calcium 9.2 Total Bilirubin 0.6 AST 13 L ALT 12 L Alkaline Phosphatase 68 Total Protein 6.8 Albumin 3.6 aaox3 ambulating no acute distress Assessment: 08/28/18 10:35 withdrawal sx Plan: continue detox increase fluids
--- NOTE | 2018-08-28 11:52 | CONSULT ---
[facility] Psychiatric Consult - Data Date of interview: 08/28/18 (Self-referred) Admission source: Self-referred Identifying data: Ms Teran is a 33 years old female, mother of a 4 years old daughter, unemployed supported by and living with her seeking detox treatment for alcohol and benzodiazepine Substance Abuse History: Reports history of alcohol, xanax and klonopin use. Refer to addiction counselor's summary for further information Medical History: History of cholecystectomy.Patient,otherwise,endorses good general health. Psychiatric History: Reports that she has been diagnosed with Mood Disorder and PTSD since age 18 and she has been under psychiatric care since. She last saw a psychiatrist at [facility] in March and was there for 4 years. She srecently swthed her care [facility] but has not seen the psychiatrist there yet. She was last prescribed medications at [facility] where she was admitted for inpatient rehab in June 2018. She was discharged on Abilify 5 mg po daily and Gabapentin 800 mg po QID. Over the years, reports being prescribed Gabapetin , Lamictal, Abilify and other medications. Denies previous psycjiatric hospitalization or suicidal ideations. At present, reports feeling depressed and sleeping poorly Physical/Sexual Abuse/Trauma History: Patient denies history of sexual abuse.She reports a family history of suicide attempts on her paternal side ( grand father,a paternal uncle and one of her father's cousins). Additional Comment: Denies criminal history Mental Status Exam - Mental Status Exam Alert and Oriented to: Time, Place, Person Cognitive Function: Fair Mood: Depressed, Anxious Patient Behavior: Cooperative Speech Pattern: Clear Voice Loudness: Normal Thought Process: Intact, Goal Oriented Thought Disorder: Not Present Hallucinations: Denies Suicidal Ideation: Denies Homicidal Ideation: Denies Insight/Judgement: Poor Sleep: Poorly Appetite: Fair Muscle strength/Tone: Normal Gait/Station: Normal Psychiatric Findings - Problem List ([place] 1, 2,3) (1) Mood disorder Current Visit: Yes Status: Chronic (2) PTSD (post-traumatic stress disorder) Current Visit: Yes Status: Chronic (3) Substance induced mood disorder Current Visit: Yes Status: Acute (4) Substance-induced sleep disorder Current Visit: Yes Status: Acute (5) Alcohol dependence with withdrawal, uncomplicated Current Visit: Yes Status: Acute (6) Sedative, hypnotic or anxiolytic dependence with withdrawal, uncomplicated Current Visit: Yes Status: Acute Comment: librium regimen as per patient preference (7) Opioid dependence on agonist therapy Current Visit: Yes Status: Chronic (8) Nicotine dependence Current Visit: Yes Status: Chronic Qualifiers: Nicotine product type: cigarettes Substance use status: in withdrawal Qualified Code(s): F17.213 - Nicotine dependence, cigarettes, with withdrawal (9) Overweight (BMI 25.0-29.9) Current Visit: No Status: Chronic - Initial Treatment Plan Initial Treatment Plan: 1) Continue Abilify 5 mg po daily and Gabapentin 800 mg po QID. 2) Start Belsomra 10 mg po HS prn for insomnia
[2018-08-28] MEDS: ARIPiprazole 5 MG TABLET (FP) PO SCH (12:53)
[2018-08-28] MEDS: GABAPENTIN 400 MG CAPSULE (FP) PO SCH ×3 (13:03→21:29)
[2018-08-28] MEDS ORDERED: GABAPENTIN 400 MG CAPSULE (FP) PO SCH (14:00)
[2018-08-28] MEDS: chlordiazePOXIDE HCL 10 MG CAPSULE PO PRN (17:02)
[2018-08-28] MEDS: chlordiazePOXIDE 5 MG CAPSULE PO SCH (21:30)
[2018-08-28] MEDS: THIAMINE HCL 100 MG TABLET (FP) PO SCH (21:30)
[2018-08-28] MEDS: MELATONIN 5 MG TABLETS PO PRN (21:30)
[2018-08-28] MEDS: ACETAMINOPHEN 325 MG TABLET (FP) PO PRN (21:31)
[2018-08-28] MEDS: SUVOREXANT 10 MG TABLET PO PRN (22:15)
[2018-08-29] MEDS ORDERED: METHADONE HCL 5 MG TABLET ONE (04:30)
[2018-08-29] MEDS ORDERED: METHADONE HCL 40 MG DISPERSABLE TABLET ONE (04:30)
[2018-08-29] MEDS ORDERED: METHADONE HCL 10 MG TABLET ONE (04:30)
[2018-08-29] MEDS: chlordiazePOXIDE 5 MG CAPSULE PO SCH ×2 (06:02→14:09)
[2018-08-29] MEDS: METHADONE 160 MG, METHADONE 10 MG, METHADONE 5 MG PO SCH (06:02)
[2018-08-29] MEDS: IBUPROFEN 400 MG TABLET (FP) PO PRN (06:05)
[2018-08-29] MEDS: chlordiazePOXIDE HCL 10 MG CAPSULE PO PRN ×2 (10:15→17:28)
[2018-08-29] MEDS: GABAPENTIN 400 MG CAPSULE (FP) PO SCH ×4 (10:16→21:58)
[2018-08-29] MEDS: ARIPiprazole 5 MG TABLET (FP) PO SCH (10:16)
[2018-08-29] MEDS: PRENATAL VITAMINS W/ FOLIC ACID TABLET (FP) PO SCH (10:16)
[2018-08-29] MEDS: NICOTINE 14 MG/24 HOURS TOPICAL PATCH TD SCH (11:36)
--- NOTE | 2018-08-29 12:28 | PN ---
[facility] CIWA - CIWA Score Nausea/Vomitin-No Nausea/No Vomiting Muscle Tremors: 3 Anxiety: 3 Agitation: 3 Paroxysmal Sweats: 3 Orientation: 0-Oriented Tacttile Disturbances: 0-None Auditory Disturbances: 0-None Visual Disturbances: 0-None Headache: 0-None Present CIWA-Ar Total Score: 12 S Progress Note (SOAP) Subjective: sweats anxiety mild shakes interrupted sleep stomach ache Objective: 08/29/18 12:27 Vital Signs Temperature 98.6 F 08/29/18 09:43 Pulse Rate 83 08/29/18 09:43 Respiratory Rate 20 08/29/18 09:43 Blood Pressure 130/85 08/29/18 09:43 O2 Sat by Pulse Oximetry (%) Laboratory Tests 08/28/18 08/28/18 08/28/18 07:00 07:00 07:00 WBC 8.0 RBC 4.43 Hgb 13.5 Hct 39.4 MCV 88.9 MCH 30.4 MCHC 34.2 RDW 13.4 Plt Count 203 MPV 8.9 Sodium 141 Potassium 3.9 Chloride 106 Carbon Dioxide 30 Anion Gap 5 L BUN 8 Creatinine 1.0 Creat Clearance w eGFR 64.67 Random Glucose 100 Calcium 9.2 Total Bilirubin 0.6 AST 13 L ALT 12 L Alkaline Phosphatase 68 Total Protein 6.8 Albumin 3.6 RPR Titer Nonreactive labs noted aaox3 ambulating no acute distress Assessment: 08/29/18 12:28 withdrawal sx Plan: continue detox increase fluids bentaly ordered
[2018-08-29] MEDS ORDERED: DICYCLOMINE HCL 10 MG CAPSULE PO PRN (12:52)
[2018-08-29] MEDS: SUVOREXANT 10 MG TABLET PO PRN (21:57)
[2018-08-29] MEDS: THIAMINE HCL 100 MG TABLET (FP) PO SCH (21:57)
[2018-08-29] MEDS: chlordiazePOXIDE HCL 10 MG CAPSULE PO SCH (21:58)
[2018-08-30] MEDS ORDERED: METHADONE HCL 5 MG TABLET ONE (04:28)
[2018-08-30] MEDS ORDERED: METHADONE HCL 40 MG DISPERSABLE TABLET ONE (04:29)
[2018-08-30] MEDS ORDERED: METHADONE HCL 10 MG TABLET ONE (04:29)
[2018-08-30] MEDS: METHADONE 160 MG, METHADONE 10 MG, METHADONE 5 MG PO SCH (05:32)
[2018-08-30] MEDS: chlordiazePOXIDE HCL 10 MG CAPSULE PO SCH ×3 (05:33→22:19)
[2018-08-30] MEDS: ARIPiprazole 5 MG TABLET (FP) PO SCH (11:02)
[2018-08-30] MEDS: GABAPENTIN 400 MG CAPSULE (FP) PO SCH ×4 (11:02→22:19)
[2018-08-30] MEDS: PRENATAL VITAMINS W/ FOLIC ACID TABLET (FP) PO SCH (11:02)
[2018-08-30] MEDS: ACETAMINOPHEN 325 MG TABLET (FP) PO PRN (11:03)
[2018-08-30] MEDS: chlordiazePOXIDE HCL 10 MG CAPSULE PO PRN ×2 (11:03→17:27)
[2018-08-30] MEDS: NICOTINE 14 MG/24 HOURS TOPICAL PATCH TD SCH (11:04)
--- NOTE | 2018-08-30 13:13 | PN ---
BHS Progress Note (SOAP) Subjective: sweats agitation shakes interrupted sleep Objective: 08/30/18 13:13 Vital Signs Temperature 97.5 F L 08/30/18 10:55 Pulse Rate 88 08/30/18 10:55 Respiratory Rate 18 08/30/18 10:55 Blood Pressure 129/57 L 08/30/18 10:55 O2 Sat by Pulse Oximetry (%) aaox3 ambulating no acute distress Assessment: 08/30/18 13:13 withdrawal sx Plan: continue detox increase fluids
[2018-08-30] MEDS: THIAMINE HCL 100 MG TABLET (FP) PO SCH (22:19)
[2018-08-30] MEDS: SUVOREXANT 10 MG TABLET PO PRN (22:20)
[2018-08-31] MEDS ORDERED: METHADONE HCL 5 MG TABLET ONE (04:56)
[2018-08-31] MEDS ORDERED: METHADONE HCL 40 MG DISPERSABLE TABLET ONE (04:56)
[2018-08-31] MEDS ORDERED: METHADONE HCL 10 MG TABLET ONE (04:56)
[2018-08-31] MEDS: METHADONE 160 MG, METHADONE 10 MG, METHADONE 5 MG PO SCH (05:42)
[2018-08-31 07:13] VITALS: BP 90/66; PULSE 89; TEMP 97.7
--- NOTE | 2018-08-31 08:54 | DS ---
[facility] Detox Discharge Summary Admission Date: 08/27/18 Discharge Date: 08/31/18 - History Present History: Alcohol Dependence, Sedative Dependence Additional Comments: Patient medically stable. Detox Completed. Patient to follow up with out patient referrals. Patient to also follow up with primary care provider in a week - Physical Exam Results Vital Signs: Vital Signs Temperature 97.7 F 08/31/18 06:00 Pulse Rate 89 08/31/18 06:00 Respiratory Rate 18 08/31/18 06:00 Blood Pressure 90/66 08/31/18 06:00 O2 Sat by Pulse Oximetry (%) Pertinent Admission Physical Exam Findings: Vital Signs Period Temp Pulse Resp BP Sys/Brian Pulse Ox Last 24 Hr 97.7 F-98.2 F 68-89 16-20 90-113/66-70 Laboratory Last Values WBC 8.0 K/mm3 (4.0-10.0) 08/28/18 07:00 RBC 4.43 M/mm3 (3.60-5.2) 08/28/18 07:00 Hgb 13.5 GM/dL (10.7-15.3) 08/28/18 07:00 Hct 39.4 % (32.4-45.2) 08/28/18 07:00 MCV 88.9 fl (80-96) 08/28/18 07:00 MCH 30.4 pg (25.7-33.7) 08/28/18 07:00 MCHC 34.2 g/dl (32.0-36.0) 08/28/18 07:00 RDW 13.4 % (11.6-15.6) 08/28/18 07:00 Plt Count 203 K/MM3 (134-434) 08/28/18 07:00 MPV 8.9 fl (7.5-11.1) 08/28/18 07:00 Sodium 141 mmol/L (136-145) 08/28/18 07:00 Potassium 3.9 mmol/L (3.5-5.1) 08/28/18 07:00 Chloride 106 mmol/L (98-107) 08/28/18 07:00 Carbon Dioxide 30 mmol/L (21-32) 08/28/18 07:00 Anion Gap 5 MMOL/L (8-16) L 08/28/18 07:00 BUN 8 mg/dL (7-18) 08/28/18 07:00 Creatinine 1.0 mg/dL (0.55-1.3) 08/28/18 07:00 Creat Clearance w eGFR 64.67 (>60) 08/28/18 07:00 Random Glucose 100 mg/dL (74-106) 08/28/18 07:00 Calcium 9.2 mg/dL (8.5-10.1) 08/28/18 07:00 Total Bilirubin 0.6 mg/dL (0.2-1) 08/28/18 07:00 AST 13 U/L (15-37) L 08/28/18 07:00 ALT 12 U/L (13-61) L 08/28/18 07:00 Alkaline Phosphatase 68 U/L (45-117) 08/28/18 07:00 Total Protein 6.8 g/dl (6.4-8.2) 08/28/18 07:00 Albumin 3.6 g/dl (3.4-5.0) 08/28/18 07:00 RPR Titer Nonreactive (NONREACTIVE) 08/28/18 07:00 - Treatment Hospital Course: Detox Protocol Followed, Detoxed Safely, Responded well, Discharged Condition Good, Rehab Referral Accepted Patient has Accepted a Rehab Referral to: Out Patient - Medication Discharge Medications: Ambulatory Orders Gabapentin [Neurontin -] 800 mg PO QID 07/29/16 Aripiprazole [Abilify] 5 mg PO DAILY 08/27/18 Aripiprazole [Abilify -] 5 mg PO DAILY #30 tablet 08/31/18 Gabapentin 800 mg PO QID #120 tablet 08/31/18 - Diagnosis (1) Alcohol dependence with withdrawal, uncomplicated Status: Acute (2) Opioid dependence on agonist therapy Status: Chronic (3) Sedative, hypnotic or anxiolytic dependence with withdrawal, uncomplicated Status: Acute (4) Nicotine dependence Status: Chronic Qualifiers: Nicotine product type: cigarettes Substance use status: in withdrawal Qualified Code(s): F17.213 - Nicotine dependence, cigarettes, with withdrawal (5) Depression Status: Chronic Qualifiers: Depression Type: unspecified Qualified Code(s): F32.9 - Major depressive disorder, single episode, unspecified - AMA Did Patient Leave Against Medical Advice: No
[2018-08-31] MEDS: IBUPROFEN 400 MG TABLET (FP) PO PRN (10:18)
[2018-08-31] MEDS: NICOTINE 14 MG/24 HOURS TOPICAL PATCH TD SCH (10:19)
[2018-08-31] MEDS: GABAPENTIN 400 MG CAPSULE (FP) PO SCH (10:19)
[2018-08-31] MEDS: PRENATAL VITAMINS W/ FOLIC ACID TABLET (FP) PO SCH (10:20)
[2018-08-31] MEDS: ARIPiprazole 5 MG TABLET (FP) PO SCH (10:22)
--- NOTE | 2018-08-31 10:46 | PN ---
[facility] Progress Note Note: Patient is scheduled for discharge today. Scripts for 30 days supply of medications(Abilify 5 mg/day & Gabapentin 800 mg/qid) are electronically transmitted to [facility] at [address] [place] [id number]
== END 2018-08-31 10:31 | disposition home or self-care (01) | DRG 773 ==
LOC: YASAS 13:21 → Y6N 16:32
PROVIDERS: ADMIT Surgery; ATTEND Surgery
PROC: HZ2ZZZZ Detoxification Services for Substance Abuse Treatment (ICD-10-PCS; principal; 2018-08-27)
DX: F10.230 Alcohol dependence with withdrawal, uncomplicated (principal); F11.20 Opioid dependence, uncomplicated; F13.230 Sedative, hypnotic or anxiolytic dependence with withdrawal, uncomplicated; F17.213 Nicotine dependence, cigarettes, with withdrawal; F32.9 Major depressive disorder, single episode, unspecified; F39 Unspecified mood [affective] disorder; F43.10 Post-traumatic stress disorder, unspecified; F19.24 Other psychoactive substance dependence with psychoactive substance-induced mood disorder; F19.282 Other psychoactive substance dependence with psychoactive substance-induced sleep disorder; E66.3 Overweight; Z68.27 Body mass index [BMI] 27.0-27.9, adult; Z91.013 Allergy to seafood
CPT/HCPCS: 36415; 80053; 85027; 86593

== ENCOUNTER 2018-10-13 13:25 | Inpatient (IN) | payer OTHER ==
[2018-10-13 14:06] VITALS: BMI 28.6
--- NOTE | 2018-10-13 14:37 | HP ---
CIWA Score Nausea/Vomitin Muscle Tremors: 4-Moderate,w/Arms Extend Anxiety: 4-Mod. Anxious/Guarded Agitation: 1-Slight > Activity Paroxysmal Sweats: No Perspiration Orientation: 3-Disoriented Date>2 days Tacttile Disturbances: 0-None Auditory Disturbances: 1-Very Mild Visual Disturbances: 1-Very Mild Sensitivity Headache: 2-Mild CIWA-Ar Total Score: 18 - Admission Criteria OASAS Guidelines: Admission for Medically Managed Detox: Requires at least one of the followin. CIWA greater than 12 2. Seizures within the past 24 hours 3. Delirium tremens within the past 24 hours 4. Hallucinations within the past 24 hours 5. Acute intervention needed for co occurring medical disorder 6. Acute intervention needed for co occurring psychiatric disorder 7. Severe withdrawal that cannot be handled at a lower level of care (continued vomiting, continued diarrhea, abnormal vital signs) requiring intravenous medication and/or fluids 8. Patient presents the following: CIWA greater than 12 Admission Criteria Met: Admission criteria met Admission ROS S - HPI Chief Complaint: I don't want to lose my child - I want to treat this Allergies/Adverse Reactions: Allergies Allergy/AdvReac Type Severity Reaction Status Date / Time Fish Containing Products Allergy Severe Swelling Verified 10/13/18 13:51 History of Present Illness: 33 yo woman here for detox from benzodiazpine and alcohol - history of seizure and black outs. Last here 08/27/18. In methadone program at [facility] - clinic 2 175mg - was dosed today and brought in bottle - [phone]. We discussed need for shelter rehab but she states she does not have childcare for this. Exam Limitations: No Limitations - Ebola screening Have you traveled outside of the country in the last 21 days: No (N) Have you had contact with anyone from an Ebola affected area: No Do you have a fever: No - Review of Systems Constitutional: Loss of Appetite, Changes in sleep EENT: reports: No Symptoms Reported Respiratory: reports: No Symptoms reported Cardiac: reports: No Symptoms Reported GI: reports: Diarrhea, Poor Appetite, Abdominal cramping : reports: No Symptoms Reported Musculoskeletal: reports: No Symptoms Reported Integumentary: reports: Rash (right forearm rash ? bug bites) Neuro: reports: Headache, Tremors Endocrine: reports: No Symptoms Reported Hematology: reports: No Symptoms Reported Psychiatric: reports: Judgement Intact, Mood/Affect Appropiate, Orientated x3, Anxious Other Systems: Reviewed and Negative Patient History - Patient Medical History Hx Anemia: No Hx Asthma: No Hx Chronic Obstructive Pulmonary Disease (COPD): No Hx Cancer: No Hx Cardiac Disorders: No Hx Congestive Heart Failure: No Hx Hypertension: No Hx Hypercholesterolemia: No Hx Pacemaker: No HX Cerebrovascular Accident: No Hx Seizures: Yes (last was September 2018) Hx Dementia: No Hx Diabetes: No Hx Gastrointestinal Disorders: No Hx Liver Disease: No Hx Genitourinary Disorders: No Hx Sexually Transmitted Disorders: No Hx Renal Disease (ESRD): No Hx Thyroid Disease: No Hx Human Immunodeficiency Virus (HIV): No Hx Hepatitis C: No Hx Depression: Yes (with anxiety - PTSD - borderline personality - panic) Hx Suicide Attempt: Yes (age 18 - pills - never hospitalized) Hx Bipolar Disorder: No Hx Schizophrenia: No - Patient Surgical History Past Surgical History: Yes Hx Neurologic Surgery: No Hx Cataract Extraction: No Hx Cardiac Surgery: No Hx Lung Surgery: No Hx Breast Surgery: No Hx Breast Biopsy: No Hx Abdominal Surgery: No Hx Appendectomy: No Hx Cholecystectomy: Yes (2012) Hx Genitourinary Surgery: No Hx Section: No Hx Orthopedic Surgery: No Hx Hysterectomy: No Anesthesia Reaction: No - PPD History Previous Implant?: Yes Documented Results: Negative w/proof Implanted On Prior R Admission?: Yes Date: 05/31/18 PPD to be Administered?: No - Reproductive History Patient is a Female of Child Bearing Age (11 -55 yrs old): Yes Last Menstrual Period: 08/10/18 - Smoking Cessation Smoking history: Current every day smoker Have you smoked in the past 12 months: Yes Aproximately how many cigarettes per day: 10 Cigars Per Day: 0 Hx Chewing Tobacco Use: No Initiated information on smoking cessation: Yes 'Breaking Loose' booklet given: 10/13/18 (give on lfoor) - Substance & Tx. History Hx Alcohol Use: Yes Hx Substance Use: Yes Substance Use Type: Alcohol, Marijuana, Tranquilizers Hx Substance Use Treatment: Yes (detox, rehab, methadone program) - Substances abused Benzodiazepine (Klonopin) Substance route: Oral Frequency: 3-6 times per week Amount used: 15-18 ( 2mg each ) Age of first use: 29 Date of last use: 10/11/18 Alprazolam (Xanax) Substance route: Oral Frequency: Daily Amount used: 10 - 15 sticks ( 2mg each) Age of first use: 29 Date of last use: 10/13/18 Alcohol Substance route: Oral Frequency: 3-6 times per week Amount used: 1 pint - three times a week Age of first use: 18 Date of last use: 10/10/18 Diazepam Substance route: Oral Frequency: 1-2 times per week Amount used: 5-10/day Age of first use: 29 Date of last use: 09/29/18 Marijuana/Hashish Substance route: Smoking Frequency: Daily Amount used: hit or two, less than a dime Age of first use: 18 Date of last use: 10/12/18 Other Other (specify): Valium Substance route: Oral Frequency: Daily Amount used: 5-10/day Age of first use: 29 Date of last use: 09/29/18 Family Disease History - Family Disease History Family Disease History: Heart Disease: Father (living, htn), CA: Mother (living , hx colon cancer; hx abusing pain meds), Other: Grandparent (hx suicide paternal grandfather), Father, Mother, Brother (one - with irritable bowel), Daughter (one age 4 - healthy) Admission Physical Exam [facility] - Vital Signs Vital Signs: Vital Signs - 24 hr 10/13/18 13:56 Temperature 97.9 F Pulse Rate 69 Respiratory 17 Rate Blood Pressure 90/63 - Physical General Appearance: Yes: Nourished, Appropriately Dressed, Moderate Distress, Tremorous, Irritable, Anxious HEENTM: Yes: EOMI, Hearing grossly Normal, Normal ENT Inspection, Normocephalic , Normal Voice Respiratory: Yes: Normal Breath Sounds, No Respiratory Distress Neck: Yes: No masses,lesions,Nodules Breast: Yes: Breast Exam Deferred Cardiology: Yes: Regular Rhythm, Regular Rate Abdominal: Yes: Soft Genitourinary: Yes: Within Normal Limits Back: Yes: Normal Inspection Musculoskeletal: Yes: full range of Motion, Gait Steady Extremities: Yes: Normal Inspection, Normal Range of Motion, Non-Tender Neurological: Yes: Fully Oriented, Alert, Normal Mood/Affect, Normal Response, Numbness Integumentary: Yes: Normal Color, Warm, Rash (right fore-arm with erythematous rash ?bug bite related) Lymphatic: Yes: Within Normal Limits - Diagnostic (1) Alcohol dependence with withdrawal, uncomplicated Current Visit: Yes Status: Chronic (2) Withdrawal from benzodiazepine Current Visit: Yes Status: Chronic Qualifiers: Complication of substance-induced condition: uncomplicated Qualified Code(s ): F13.230 - Sedative, hypnotic or anxiolytic dependence with withdrawal, uncomplicated (3) Methadone maintenance therapy patient Current Visit: Yes Status: Chronic Comment: 145 mg verification pending (4) Nicotine dependence Current Visit: Yes Status: Chronic Qualifiers: Nicotine product type: cigarettes Substance use status: in withdrawal Qualified Code(s): F17.213 - Nicotine dependence, cigarettes, with withdrawal (5) Overweight (BMI 25.0-29.9) Current Visit: Yes Status: Chronic (6) History of seizure Current Visit: Yes Status: Chronic Cleared for Admission S - Detox or Rehab [facility] Level of Care: Medically Managed Detox Regimen/Protocol: Valium Breathalyzer - Breathalyzer Breathalyzer: 0 POC Urine test - Test device test lot number: [id number] Expiration date: 01/13/20 - Control test control: Yes Urine Drug Screen - Test Device Lot number: [id number] Expiration date: 04/13/20 - Control Is test valid?: Yes - Results Drug screen NEGATIVE: No Urine drug screen results: THC-Marijuana, MTD-Methadone, BZO-Benzodiazepines Inpatient Rehab Admission - Rehab Decision to Admit Inpatient rehab admission?: No
[2018-10-13] MEDS ORDERED: MENTHOL/PHENOL 1 EACH UD MM PRN (14:52)
[2018-10-13] MEDS ORDERED: MAGNESIUM CITRATE 300 ML BOTTLE PO PRN (14:52)
[2018-10-13] MEDS ORDERED: BISMUTH SUBSALICYLATE 524 MG/30 ML UD PO PRN (14:52)
[2018-10-13] MEDS ORDERED: hydrOXYzine PAMOATE 25 MG CAPSULE (FP) PO PRN (14:52)
[2018-10-13] MEDS ORDERED: MELATONIN 5 MG TABLETS PO PRN (14:52)
[2018-10-13] MEDS ORDERED: MAG HYDROX/AL HYDROX/SIMETH 30 ML UNIT-DOSE CUP PO PRN (14:52)
[2018-10-13] MEDS ORDERED: IBUPROFEN 400 MG TABLET (FP) PO PRN (14:52)
[2018-10-13] MEDS ORDERED: MAGNESIUM HYDROX 2400MG/30ML ORAL SUSPENSION 30 ML CUP PO PRN (14:52)
[2018-10-13] MEDS ORDERED: HYDROCORTISONE 1% TOPICAL OINT 30 GM TUBE TP PRN (14:55)
[2018-10-13] MEDS ORDERED: chlordiazePOXIDE HCL 25 MG CAPSULE PO ONE (15:30)
[2018-10-13] MEDS: chlordiazePOXIDE HCL 25 MG CAPSULE PO SCH ×2 (16:26→22:36)
[2018-10-13] MEDS: NICOTINE 21 MG/24 HOURS TOPICAL PATCH TD SCH (16:27)
[2018-10-13] MEDS: THIAMINE HCL 100 MG TABLET (FP) PO SCH (22:36)
[2018-10-14] MEDS: chlordiazePOXIDE HCL 25 MG CAPSULE PO SCH ×4 (05:41→22:11)
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
[2018-10-14] MEDS: chlordiazePOXIDE HCL 25 MG CAPSULE PO PRN ×3 (07:49→20:18)
[2018-10-14] MEDS: METHOCARBAMOL 500 MG TABLET PO PRN ×2 (07:49→20:18)
[2018-10-14] MEDS ORDERED: METHADONE 160 MG, METHADONE 10 MG, METHADONE 5 MG PO ONE (09:30)
[2018-10-14] MEDS ORDERED: METHADONE HCL 10 MG TABLET ONE (09:40)
[2018-10-14] MEDS ORDERED: METHADONE HCL 5 MG TABLET ONE (09:41)
[2018-10-14] MEDS ORDERED: METHADONE HCL 40 MG DISPERSABLE TABLET ONE (09:41)
[2018-10-14] MEDS ORDERED: METHADONE HCL 40 MG DISPERSABLE TABLET PO ONE (10:00)
[2018-10-14] MEDS: PRENATAL VITAMINS W/ FOLIC ACID TABLET (FP) PO SCH (10:13)
[2018-10-14] MEDS: GABAPENTIN 400 MG CAPSULE (FP) PO SCH ×4 (10:13→22:11)
[2018-10-14] MEDS: ARIPiprazole 5 MG TABLET (FP) PO SCH (10:14)
[2018-10-14] MEDS: NICOTINE 21 MG/24 HOURS TOPICAL PATCH TD SCH (10:17)
[2018-10-14 10:56] LABS: ALBUMIN 3.4 g/dl (3.4-5.0); BILIRUBIN,TOTAL 0.4 mg/dL (0.2-1); CREATININE 0.9 mg/dL (0.55-1.3); POTASSIUM 3.8 mmol/L (3.5-5.1); TOT PROT 6.6 g/dl (6.4-8.2)
[2018-10-14 10:58] LABS: HEMATOCRIT 38.9 % (32.4-45.2); MCH 29.6 pg (25.7-33.7); MCHC 33.5 g/dl (32.0-36.0); MEAN CELL VOLUME 88.2 fl (80-96); MEAN PLT VOLUME 9.3 fl (7.5-11.1); PLATELET COUNT 171 K/MM3 (134-434); RBC 4.41 M/mm3 (3.60-5.2); RDW 13.5 % (11.6-15.6); WHITE BLOOD COUNT 6.1 K/mm3 (4.0-10.0)
--- NOTE | 2018-10-14 16:04 | PN ---
[facility] CIWA - CIWA Score Nausea/Vomitin-No Nausea/No Vomiting Muscle Tremors: 3 Anxiety: 3 Agitation: 4-Moderately Restless Paroxysmal Sweats: 2 Orientation: 0-Oriented Tacttile Disturbances: 0-None Auditory Disturbances: 0-None Visual Disturbances: 0-None Headache: 0-None Present CIWA-Ar Total Score: 12 S Progress Note (SOAP) Subjective: "I need my methadone" Objective: 10/14/18 16:07 TREMORS ANXIOUS/AGITATED aMBULATING STEADILY WITHOUT DISTRESS ON UNIT Vital Signs Temperature 99.3 F 10/14/18 14:13 Pulse Rate 61 10/14/18 14:13 Respiratory Rate 18 10/14/18 14:13 Blood Pressure 98/62 10/14/18 14:13 O2 Sat by Pulse Oximetry (%) Laboratory Last Values WBC 6.1 K/mm3 (4.0-10.0) 10/14/18 07:40 RBC 4.41 M/mm3 (3.60-5.2) 10/14/18 07:40 Hgb 13.0 GM/dL (10.7-15.3) 10/14/18 07:40 Hct 38.9 % (32.4-45.2) 10/14/18 07:40 MCV 88.2 fl (80-96) 10/14/18 07:40 MCH 29.6 pg (25.7-33.7) 10/14/18 07:40 MCHC 33.5 g/dl (32.0-36.0) 10/14/18 07:40 RDW 13.5 % (11.6-15.6) 10/14/18 07:40 Plt Count 171 K/MM3 (134-434) 10/14/18 07:40 MPV 9.3 fl (7.5-11.1) 10/14/18 07:40 Sodium 139 mmol/L (136-145) 10/14/18 07:40 Potassium 3.8 mmol/L (3.5-5.1) 10/14/18 07:40 Chloride 103 mmol/L (98-107) 10/14/18 07:40 Carbon Dioxide 27 mmol/L (21-32) 10/14/18 07:40 Anion Gap 9 MMOL/L (8-16) 10/14/18 07:40 BUN 12 mg/dL (7-18) 10/14/18 07:40 Creatinine 0.9 mg/dL (0.55-1.3) 10/14/18 07:40 Est GFR (CKD-EPI)AfAm 98.75 10/14/18 07:40 Est GFR (CKD-EPI)NonAf 85.20 10/14/18 07:40 Random Glucose 116 mg/dL (74-106) H 10/14/18 07:40 Calcium 9.0 mg/dL (8.5-10.1) 10/14/18 07:40 Total Bilirubin 0.4 mg/dL (0.2-1) 10/14/18 07:40 AST 14 U/L (15-37) L 10/14/18 07:40 ALT 33 U/L (13-61) 10/14/18 07:40 Alkaline Phosphatase 73 U/L (45-117) 10/14/18 07:40 Total Protein 6.6 g/dl (6.4-8.2) 10/14/18 07:40 Albumin 3.4 g/dl (3.4-5.0) 10/14/18 07:40 POC Urine HCG, Qual Negative 10/13/18 14:59 RPR Titer Nonreactive (NONREACTIVE) 10/14/18 07:40 LABS NOTED Assessment: 10/14/18 16:13 WITHDRAWAL SX ELEVATED BLOOD GLUCOSE WITHOUT A DX OF DM Plan: CONTINUE DETOX INCREASE WATER HYDRATION METHADONE UNVERIFIED DUE TO CENTER CLOSED BUT ORDERED BY ANOTHER PROVIDER BECAUSE PT HAD BOTTLE FROM CENTER MAINTENANCE DOSE SUBJECT TO VERIFICATION
[2018-10-14] MEDS: ACETAMINOPHEN 325 MG TABLET (FP) PO PRN (17:06)
[2018-10-14] MEDS: traZODone HCL 100 MG TABLET (FP) PO SCH (22:11)
[2018-10-14] MEDS: THIAMINE HCL 100 MG TABLET (FP) PO SCH (22:11)
[2018-10-15] MEDS: METHOCARBAMOL 500 MG TABLET PO PRN ×2 (02:34→12:10)
[2018-10-15] MEDS: chlordiazePOXIDE HCL 25 MG CAPSULE PO PRN ×2 (02:35→12:10)
[2018-10-15] MEDS: chlordiazePOXIDE HCL 25 MG CAPSULE PO SCH ×2 (05:33→10:06)
[2018-10-15] MEDS ORDERED: METHADONE 160 MG, METHADONE 10 MG, METHADONE 5 MG PO ONE (08:00)
[2018-10-15] MEDS ORDERED: METHADONE HCL 10 MG TABLET PO SCH (08:00)
[2018-10-15] MEDS ORDERED: METHADONE HCL 10 MG TABLET ONE (08:04)
[2018-10-15] MEDS ORDERED: METHADONE HCL 40 MG DISPERSABLE TABLET ONE (08:05)
[2018-10-15] MEDS ORDERED: METHADONE HCL 5 MG TABLET ONE (08:05)
[2018-10-15] MEDS: GABAPENTIN 400 MG CAPSULE (FP) PO SCH ×4 (10:06→22:08)
[2018-10-15] MEDS: PRENATAL VITAMINS W/ FOLIC ACID TABLET (FP) PO SCH (10:06)
[2018-10-15] MEDS: NICOTINE 21 MG/24 HOURS TOPICAL PATCH TD SCH (10:07)
[2018-10-15] MEDS: ACETAMINOPHEN 325 MG TABLET (FP) PO PRN (10:08)
--- NOTE | 2018-10-15 11:34 | PN ---
S CIWA - CIWA Score Nausea/Vomitin-Mild Nausea/No Vomiting Muscle Tremors: 2 Anxiety: 3 Agitation: 2 Paroxysmal Sweats: 1-Minimal Palms Moist Orientation: 0-Oriented Tacttile Disturbances: 0-None Auditory Disturbances: 0-None Visual Disturbances: 0-None Headache: 1-Very Mild CIWA-Ar Total Score: 10 S Progress Note (SOAP) Subjective: tired anxious received methadone 175 mg feeling better prefers resting on bed Objective: 10/15/18 11:33 Vital Signs Temperature 97.9 F 10/15/18 09:21 Pulse Rate 72 10/15/18 09:21 Respiratory Rate 20 10/15/18 09:21 Blood Pressure 110/75 10/15/18 09:21 O2 Sat by Pulse Oximetry (%) Laboratory Last Values WBC 6.1 K/mm3 (4.0-10.0) 10/14/18 07:40 RBC 4.41 M/mm3 (3.60-5.2) 10/14/18 07:40 Hgb 13.0 GM/dL (10.7-15.3) 10/14/18 07:40 Hct 38.9 % (32.4-45.2) 10/14/18 07:40 MCV 88.2 fl (80-96) 10/14/18 07:40 MCH 29.6 pg (25.7-33.7) 10/14/18 07:40 MCHC 33.5 g/dl (32.0-36.0) 10/14/18 07:40 RDW 13.5 % (11.6-15.6) 10/14/18 07:40 Plt Count 171 K/MM3 (134-434) 10/14/18 07:40 MPV 9.3 fl (7.5-11.1) 10/14/18 07:40 Sodium 139 mmol/L (136-145) 10/14/18 07:40 Potassium 3.8 mmol/L (3.5-5.1) 10/14/18 07:40 Chloride 103 mmol/L (98-107) 10/14/18 07:40 Carbon Dioxide 27 mmol/L (21-32) 10/14/18 07:40 Anion Gap 9 MMOL/L (8-16) 10/14/18 07:40 BUN 12 mg/dL (7-18) 10/14/18 07:40 Creatinine 0.9 mg/dL (0.55-1.3) 10/14/18 07:40 Est GFR (CKD-EPI)AfAm 98.75 10/14/18 07:40 Est GFR (CKD-EPI)NonAf 85.20 10/14/18 07:40 Random Glucose 116 mg/dL (74-106) H 10/14/18 07:40 Calcium 9.0 mg/dL (8.5-10.1) 10/14/18 07:40 Total Bilirubin 0.4 mg/dL (0.2-1) 10/14/18 07:40 AST 14 U/L (15-37) L 10/14/18 07:40 ALT 33 U/L (13-61) 10/14/18 07:40 Alkaline Phosphatase 73 U/L (45-117) 10/14/18 07:40 Total Protein 6.6 g/dl (6.4-8.2) 10/14/18 07:40 Albumin 3.4 g/dl (3.4-5.0) 10/14/18 07:40 POC Urine HCG, Qual Negative 10/13/18 14:59 RPR Titer Nonreactive (NONREACTIVE) 10/14/18 07:40 lab noted Assessment: 10/15/18 11:33 alcohol and benzo withdrawal sx Laboratory Last Values WBC 6.1 K/mm3 (4.0-10.0) 10/14/18 07:40 RBC 4.41 M/mm3 (3.60-5.2) 10/14/18 07:40 Hgb 13.0 GM/dL (10.7-15.3) 10/14/18 07:40 Hct 38.9 % (32.4-45.2) 10/14/18 07:40 MCV 88.2 fl (80-96) 10/14/18 07:40 MCH 29.6 pg (25.7-33.7) 10/14/18 07:40 MCHC 33.5 g/dl (32.0-36.0) 10/14/18 07:40 RDW 13.5 % (11.6-15.6) 10/14/18 07:40 Plt Count 171 K/MM3 (134-434) 10/14/18 07:40 MPV 9.3 fl (7.5-11.1) 10/14/18 07:40 Sodium 139 mmol/L (136-145) 10/14/18 07:40 Potassium 3.8 mmol/L (3.5-5.1) 10/14/18 07:40 Chloride 103 mmol/L (98-107) 10/14/18 07:40 Carbon Dioxide 27 mmol/L (21-32) 10/14/18 07:40 Anion Gap 9 MMOL/L (8-16) 10/14/18 07:40 BUN 12 mg/dL (7-18) 10/14/18 07:40 Creatinine 0.9 mg/dL (0.55-1.3) 10/14/18 07:40 Est GFR (CKD-EPI)AfAm 98.75 10/14/18 07:40 Est GFR (CKD-EPI)NonAf 85.20 10/14/18 07:40 Random Glucose 116 mg/dL (74-106) H 10/14/18 07:40 Calcium 9.0 mg/dL (8.5-10.1) 10/14/18 07:40 Total Bilirubin 0.4 mg/dL (0.2-1) 10/14/18 07:40 AST 14 U/L (15-37) L 10/14/18 07:40 ALT 33 U/L (13-61) 10/14/18 07:40 Alkaline Phosphatase 73 U/L (45-117) 10/14/18 07:40 Total Protein 6.6 g/dl (6.4-8.2) 10/14/18 07:40 Albumin 3.4 g/dl (3.4-5.0) 10/14/18 07:40 POC Urine HCG, Qual Negative 10/13/18 14:59 RPR Titer Nonreactive (NONREACTIVE) 10/14/18 07:40 lab noted Plan: continue detox
[2018-10-15] MEDS: ARIPiprazole 5 MG TABLET (FP) PO SCH (13:57)
[2018-10-15] MEDS: chlordiazePOXIDE HCL 10 MG CAPSULE PO SCH ×2 (17:37→22:08)
[2018-10-15] MEDS: chlordiazePOXIDE HCL 10 MG CAPSULE PO PRN (19:48)
[2018-10-15] MEDS: traZODone HCL 100 MG TABLET (FP) PO SCH (22:08)
[2018-10-15] MEDS: THIAMINE HCL 100 MG TABLET (FP) PO SCH (22:08)
[2018-10-16] MEDS ORDERED: METHADONE HCL 10 MG TABLET ONE (04:24)
[2018-10-16] MEDS ORDERED: METHADONE HCL 40 MG DISPERSABLE TABLET ONE (04:25)
[2018-10-16] MEDS ORDERED: METHADONE HCL 5 MG TABLET ONE (04:26)
[2018-10-16] MEDS: chlordiazePOXIDE HCL 10 MG CAPSULE PO SCH ×3 (05:01→17:54)
[2018-10-16] MEDS: METHADONE 160 MG, METHADONE 10 MG, METHADONE 5 MG PO SCH (05:01)
[2018-10-16] MEDS: PRENATAL VITAMINS W/ FOLIC ACID TABLET (FP) PO SCH (10:12)
[2018-10-16] MEDS: NICOTINE 21 MG/24 HOURS TOPICAL PATCH TD SCH (10:12)
[2018-10-16] MEDS: GABAPENTIN 400 MG CAPSULE (FP) PO SCH ×4 (10:12→22:20)
[2018-10-16] MEDS: ARIPiprazole 5 MG TABLET (FP) PO SCH (10:12)
[2018-10-16] MEDS: METHOCARBAMOL 500 MG TABLET PO PRN (13:44)
[2018-10-16] MEDS: chlordiazePOXIDE HCL 10 MG CAPSULE PO PRN (13:44)
[2018-10-16] MEDS ORDERED: PROCHLORPERAZINE MALEATE 5 MG TABLET PO PRN (13:48)
--- NOTE | 2018-10-16 14:38 | PN ---
S CIWA - CIWA Score Nausea/Vomitin-Int. Nausea w/Dry Heave Muscle Tremors: 2 Anxiety: 4-Mod. Anxious/Guarded Agitation: 2 Paroxysmal Sweats: No Perspiration Orientation: 0-Oriented Tacttile Disturbances: 2-Mild Itch/Numbness/Burn Auditory Disturbances: 0-None Visual Disturbances: 2-Mild Sensitivity Headache: 2-Mild CIWA-Ar Total Score: 18 BHS Progress Note (SOAP) Subjective: Body Aches, Hot / Cold Sensations, Nausea, Tremors, H/A, Restless Legs, Diarrhea , Anxious. Objective: PATIENT A & O X 3, OBSERVED AMBULATING ON UNIT UNASSISTED. IN NO ACUTE DISTRESS. 10/16/18 14:37 Vital Signs Temperature 97.2 F L 10/16/18 13:03 Pulse Rate 88 10/16/18 13:03 Respiratory Rate 18 10/16/18 13:03 Blood Pressure 95/64 10/16/18 13:03 O2 Sat by Pulse Oximetry (%) Laboratory Tests 10/13/18 10/14/18 10/14/18 14:59 07:40 07:40 WBC 6.1 RBC 4.41 Hgb 13.0 Hct 38.9 MCV 88.2 MCH 29.6 MCHC 33.5 RDW 13.5 Plt Count 171 MPV 9.3 Sodium 139 Potassium 3.8 Chloride 103 Carbon Dioxide 27 Anion Gap 9 BUN 12 Creatinine 0.9 Est GFR (CKD-EPI)AfAm 98.75 Est GFR (CKD-EPI)NonAf 85.20 Random Glucose 116 H Calcium 9.0 Total Bilirubin 0.4 AST 14 L ALT 33 Alkaline Phosphatase 73 Total Protein 6.6 Albumin 3.4 POC Urine HCG, Qual Negative RPR Titer 10/14/18 07:40 WBC RBC Hgb Hct MCV MCH MCHC RDW Plt Count MPV Sodium Potassium Chloride Carbon Dioxide Anion Gap BUN Creatinine Est GFR (CKD-EPI)AfAm Est GFR (CKD-EPI)NonAf Random Glucose Calcium Total Bilirubin AST ALT Alkaline Phosphatase Total Protein Albumin POC Urine HCG, Qual RPR Titer Nonreactive LABS NOTED. Assessment: 10/16/18 14:38 WITHDRAWAL SYMPTOMS. HYPOTENSION. Plan: CONTINUE DETOX. INCREASE DAILY PO FLUID / WATER INTAKE. PRN PEPTO-BISMOL PO FOR DIARRHEA. PRN COMPAZINE PO FOR NAUSEA. PRN ROBAXIN PO FOR BODY ACHES / RESTLESS LEGS.
[2018-10-16] MEDS ORDERED: ONDANSETRON *ODT* 4 MG TABLET SL PRN (17:57)
[2018-10-16 21:39] VITALS: TEMP 97.1
[2018-10-16] MEDS: traZODone HCL 100 MG TABLET (FP) PO SCH (22:19)
[2018-10-16] MEDS: THIAMINE HCL 100 MG TABLET (FP) PO SCH (22:20)
[2018-10-17] MEDS ORDERED: METHADONE HCL 40 MG DISPERSABLE TABLET ONE (04:28)
[2018-10-17] MEDS ORDERED: METHADONE HCL 10 MG TABLET ONE (04:28)
[2018-10-17] MEDS ORDERED: METHADONE HCL 5 MG TABLET ONE (04:29)
[2018-10-17] MEDS: METHADONE 160 MG, METHADONE 10 MG, METHADONE 5 MG PO SCH (05:45)
[2018-10-17] MEDS: chlordiazePOXIDE HCL 10 MG CAPSULE PO SCH (05:45)
[2018-10-17 07:05] VITALS: BP 103/67; PULSE 102
[2018-10-17] MEDS: ARIPiprazole 5 MG TABLET (FP) PO SCH (10:25)
[2018-10-17] MEDS: PRENATAL VITAMINS W/ FOLIC ACID TABLET (FP) PO SCH (10:25)
[2018-10-17] MEDS: GABAPENTIN 400 MG CAPSULE (FP) PO SCH (10:25)
[2018-10-17] MEDS: NICOTINE 21 MG/24 HOURS TOPICAL PATCH TD SCH (10:25)
--- NOTE | 2018-10-17 11:13 | PN ---
[facility] Progress Note Note: Patient is discharged today. Scripts for 30 days supply of medications(Abilify 5 mg/day, Gabapentin 800 mg/did, Trazadone 100 mg/hs) are electronically transmitted to [facility] at [address] [place], [place] [id number]
--- NOTE | 2018-10-17 15:27 | DS ---
[facility] Detox Discharge Summary Admission Date: 10/13/18 Discharge Date: 10/17/18 - History Present History: Sedative Dependence Additional Comments: 33 years old female admitted on 10/13/18 for benzo withdrawal stabilization completed detox regimen aftercare methadone maintenance progra - Physical Exam Results Vital Signs: Vital Signs Temperature 97.1 F L 10/17/18 07:04 Pulse Rate 102 H 10/17/18 07:04 Respiratory Rate 18 10/17/18 07:04 Blood Pressure 103/67 10/17/18 07:04 O2 Sat by Pulse Oximetry (%) Pertinent Admission Physical Exam Findings: benzo withdrawal sx Vital Signs Temperature 97.1 F L 10/17/18 07:04 Pulse Rate 102 H 10/17/18 07:04 Respiratory Rate 18 10/17/18 07:04 Blood Pressure 103/67 10/17/18 07:04 O2 Sat by Pulse Oximetry (%) Laboratory Last Values WBC 6.1 K/mm3 (4.0-10.0) 10/14/18 07:40 RBC 4.41 M/mm3 (3.60-5.2) 10/14/18 07:40 Hgb 13.0 GM/dL (10.7-15.3) 10/14/18 07:40 Hct 38.9 % (32.4-45.2) 10/14/18 07:40 MCV 88.2 fl (80-96) 10/14/18 07:40 MCH 29.6 pg (25.7-33.7) 10/14/18 07:40 MCHC 33.5 g/dl (32.0-36.0) 10/14/18 07:40 RDW 13.5 % (11.6-15.6) 10/14/18 07:40 Plt Count 171 K/MM3 (134-434) 10/14/18 07:40 MPV 9.3 fl (7.5-11.1) 10/14/18 07:40 Sodium 139 mmol/L (136-145) 10/14/18 07:40 Potassium 3.8 mmol/L (3.5-5.1) 10/14/18 07:40 Chloride 103 mmol/L (98-107) 10/14/18 07:40 Carbon Dioxide 27 mmol/L (21-32) 10/14/18 07:40 Anion Gap 9 MMOL/L (8-16) 10/14/18 07:40 BUN 12 mg/dL (7-18) 10/14/18 07:40 Creatinine 0.9 mg/dL (0.55-1.3) 10/14/18 07:40 Est GFR (CKD-EPI)AfAm 98.75 10/14/18 07:40 Est GFR (CKD-EPI)NonAf 85.20 10/14/18 07:40 Random Glucose 116 mg/dL (74-106) H 10/14/18 07:40 Calcium 9.0 mg/dL (8.5-10.1) 10/14/18 07:40 Total Bilirubin 0.4 mg/dL (0.2-1) 10/14/18 07:40 AST 14 U/L (15-37) L 10/14/18 07:40 ALT 33 U/L (13-61) 10/14/18 07:40 Alkaline Phosphatase 73 U/L (45-117) 10/14/18 07:40 Total Protein 6.6 g/dl (6.4-8.2) 10/14/18 07:40 Albumin 3.4 g/dl (3.4-5.0) 10/14/18 07:40 POC Urine HCG, Qual Negative 10/13/18 14:59 RPR Titer Nonreactive (NONREACTIVE) 10/14/18 07:40 lab noted - Treatment Hospital Course: Detox Protocol Followed, Detoxed Safely, Responded well, Discharged Condition Good, Rehab Referral Accepted Patient has Accepted a Rehab Referral to: methadone maintenance program - Medication Discharge Medications: Ambulatory Orders Gabapentin [Neurontin -] 800 mg PO QID 10/13/18 Methadone [Dolophine -] 175 mg PO DAILY 10/13/18 Trazodone HCl 100 mg PO HS 10/13/18 Aripiprazole [Abilify] 5 mg PO DAILY #30 tablet 10/17/18 Gabapentin 800 mg PO QID #120 tablet 10/17/18 traZODone HCL [Desyrel -] 100 mg PO HS #30 tablet 10/17/18 - Diagnosis (1) Sedative, hypnotic or anxiolytic dependence with withdrawal, uncomplicated Status: Acute (2) Substance induced mood disorder Status: Suspected (3) Methadone maintenance therapy patient Status: Chronic (4) Nicotine dependence Status: Acute Qualifiers: Nicotine product type: cigarettes Substance use status: in withdrawal Qualified Code(s): F17.213 - Nicotine dependence, cigarettes, with withdrawal (5) Overweight (BMI 25.0-29.9) Status: Chronic - AMA Did Patient Leave Against Medical Advice: No
== END 2018-10-17 09:20 | disposition home or self-care (01) | DRG 773 ==
LOC: YASAS 13:25 → Y3N 14:59
PROVIDERS: ADMIT Surgery; ATTEND Surgery
PROC: HZ2ZZZZ Detoxification Services for Substance Abuse Treatment (ICD-10-PCS; principal; 2018-10-13)
DX: F13.230 Sedative, hypnotic or anxiolytic dependence with withdrawal, uncomplicated (principal); F11.20 Opioid dependence, uncomplicated; F17.213 Nicotine dependence, cigarettes, with withdrawal; F19.24 Other psychoactive substance dependence with psychoactive substance-induced mood disorder; F19.280 Other psychoactive substance dependence with psychoactive substance-induced anxiety disorder; F19.282 Other psychoactive substance dependence with psychoactive substance-induced sleep disorder; F39 Unspecified mood [affective] disorder; F43.10 Post-traumatic stress disorder, unspecified; I95.9 Hypotension, unspecified; R73.9 Hyperglycemia, unspecified; E66.3 Overweight; Z68.28 Body mass index [BMI] 28.0-28.9, adult; Z86.69 Personal history of other diseases of the nervous system and sense organs; Z91.013 Allergy to seafood; Z91.5 Personal history of self-harm
CPT/HCPCS: 36415; 80053; 81025; 85027; 86593; Q0162

== ENCOUNTER 2018-12-11 14:11 | Inpatient (IN) | payer OTHER ==
[2018-12-11 16:14] VITALS: BMI 26.6
--- NOTE | 2018-12-11 18:18 | HP ---
CIWA Score - Admission Criteria [facility] Guidelines: Admission for Medically Managed Detox: Requires at least one of the followin. CIWA greater than 12 2. Seizures within the past 24 hours 3. Delirium tremens within the past 24 hours 4. Hallucinations within the past 24 hours 5. Acute intervention needed for co occurring medical disorder 6. Acute intervention needed for co occurring psychiatric disorder 7. Severe withdrawal that cannot be handled at a lower level of care (continued vomiting, continued diarrhea, abnormal vital signs) requiring intravenous medication and/or fluids 8. Admission ROS [facility] Chief Complaint: here for benzo detox Allergies/Adverse Reactions: Allergies Allergy/AdvReac Type Severity Reaction Status Date / Time Fish Containing Products Allergy Severe Swelling Verified 10/13/18 13:51 No Known Drug Allergies Allergy Verified 10/15/18 07:58 History of Present Illness: 33 y/o F with PMH PTSD, depression, panic disorder, RLS, who presents for detox from benzos. Also with alcohol use. Per pt, she last used xanax (2mg) 2 bars this AM. States that she uses xanax daily, and can use up to 10-15 bars/day. During this time, has also been using Klonopin from the street. Uses up to 10- 15 mg qd. Uses because it makes her feel calm and prevents her from withdrawing. Helps her "block out" the things that bother her. She started using after her uncle committed suicide. Has withdrawal seizures when she does not use. Started when she was 29 y/o. During this time, pt also has been drinking alcohol. Last drink 2-3 days ago; 1 pint of vodka. Drinks this amount 2-3 days/week. Has blacked out before, but does not know whether this was solely from the alcohol or both the alcohol and benzos in combination. During this time has also used marijuana 2x/week. $5 worth at a time. Also used heroin when she was 20-27 yrs old. Once she became , she started on methadone 175mg qd, which she is still on and took today. Receives from [facility]. Has been here previously for detox 08/2018, 12/2018. PMH: as above PsxH: lap dee meds: abilify, gabapentin, trazodone allergies: fish products - angioedema FH: mother - colorectal CA, father - HTN SH: has a 4 yr old daughter. lives in [place]. 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 smokes 5 cigs/day recently, used to smoke 10/day has smoked since she was 17 y/o. alcohol and benzo use as above. denies other drug use Exam Limitations: No Limitations - Ebola screening Have you traveled outside of the country in the last 21 days: No Have you had contact with anyone from an Ebola affected area: No Have you been sick,other than usual withdrawal symptoms: No Do you have a fever: No - Review of Systems Constitutional: No Symptoms Reported EENT: reports: No Symptoms Reported Respiratory: reports: No Symptoms reported Cardiac: reports: No Symptoms Reported GI: reports: Nausea : reports: No Symptoms Reported Musculoskeletal: reports: Back Pain, Muscle Pain, Muscle Weakness Integumentary: reports: No Symptoms Reported Neuro: reports: No Symptoms reported Endocrine: reports: No Symptoms Reported Hematology: reports: No Symptoms Reported Psychiatric: reports: No Sypmtoms Reported, Judgement Intact, Orientated x3 Patient History - Patient Medical History Hx Anemia: No Hx Asthma: No Hx Chronic Obstructive Pulmonary Disease (COPD): No Hx Cancer: No Hx Cardiac Disorders: No Hx Congestive Heart Failure: No Hx Hypertension: No Hx Hypercholesterolemia: No Hx Pacemaker: No HX Cerebrovascular Accident: No Hx Seizures: Yes (2 weeks ago) Hx Dementia: No Hx Diabetes: No Hx Gastrointestinal Disorders: No Hx Liver Disease: No Hx Genitourinary Disorders: No Hx Sexually Transmitted Disorders: No Hx Renal Disease (ESRD): No Hx Thyroid Disease: No Hx Human Immunodeficiency Virus (HIV): No Hx Hepatitis C: No Hx Depression: Yes Hx Suicide Attempt: Yes (18 years old) Hx Bipolar Disorder: No Hx Schizophrenia: No Other Medical History: PTSD, panic disorder, RLS - Patient Surgical History Past Surgical History: Yes Hx Neurologic Surgery: No Hx Cataract Extraction: No Hx Cardiac Surgery: No Hx Lung Surgery: No Hx Breast Surgery: No Hx Breast Biopsy: No Hx Abdominal Surgery: No Hx Appendectomy: No Hx Cholecystectomy: Yes (2012) Hx Genitourinary Surgery: No Hx Section: No Hx Orthopedic Surgery: No Hx Hysterectomy: No Anesthesia Reaction: No - PPD History Documented Results: Negative w/proof Date: 05/31/18 PPD to be Administered?: No - Reproductive History Patient is a Female of Child Bearing Age (11 -55 yrs old): Yes Last Menstrual Period: 11/29/18 Patient : No - Smoking Cessation Smoking history: Current every day smoker Have you smoked in the past 12 months: Yes Aproximately how many cigarettes per day: 5 Cigars Per Day: 0 Hx Chewing Tobacco Use: No Initiated information on smoking cessation: Yes 'Breaking Loose' booklet given: 12/11/18 - Substances abused Benzodiazepine (Klonopin) Substance route: Oral Frequency: 3-6 times per week Amount used: 15-18 ( 2mg each ) Age of first use: 29 Date of last use: 12/10/18 Alprazolam (Xanax) Substance route: Oral Frequency: Daily Amount used: 10 - 15 sticks ( 2mg each) Age of first use: 29 Date of last use: 12/11/18 Alcohol Substance route: Oral Frequency: 3-6 times per week Amount used: 1 pint - three times a week Age of first use: 18 Date of last use: 12/09/18 Other Other (specify): Valium Substance route: Oral Frequency: 1-3 times last 30 days Amount used: 5-10 Age of first use: 29 Date of last use: 11/11/18 Marijuana/Hashish Substance route: Smoking Frequency: 1-2 times per week Amount used: hit or two, less than a dime Age of first use: 18 Date of last use: 12/04/18 Diazepam Substance route: Oral Frequency: 1-2 times per week Amount used: 5-10/day Age of first use: 29 Date of last use: 11/27/18 Family Disease History - Family Disease History Family Disease History: Heart Disease: Father (living, htn), CA: Mother (living , hx colon cancer; hx abusing pain meds), Other: Grandparent (hx suicide paternal grandfather), Father, Mother, Brother (one - with irritable bowel), Daughter (one age 4 - healthy) Admission Physical Exam S - Vital Signs Vital Signs: Vital Signs - 24 hr 12/11/18 15:48 Temperature 98.1 F Pulse Rate 78 Respiratory 18 Rate Blood Pressure 108/79 - Physical General Appearance: Yes: Within Normal Limits HEENTM: Yes: Within Normal Limits Respiratory: Yes: Lungs Clear Neck: Yes: Supple Breast: Yes: Breast Exam Deferred Cardiology: Yes: S1, S2, Tachycardia Abdominal: Yes: Non Tender Genitourinary: Yes: Within Normal Limits Back: Yes: Normal Inspection Musculoskeletal: Yes: Within Normal Limits, full range of Motion Extremities: Yes: Within Normal Limits, Other (+R knee - with abrasion, serous drainage) Neurological: Yes: health physicist II-XII NML intact Integumentary: Yes: Within Normal Limits Lymphatic: Yes: Within Normal Limits - Diagnostic (1) Nicotine use disorder Current Visit: Yes Status: Chronic (2) Withdrawal seizures Current Visit: Yes Status: Chronic (3) Panic disorder Current Visit: Yes Status: Chronic (4) Depression Current Visit: No Status: Chronic Qualifiers: Depression Type: unspecified Qualified Code(s): F32.9 - Major depressive disorder, single episode, unspecified Comment: on meli (5) Opioid dependence on agonist therapy Current Visit: Yes Status: Chronic (6) Overweight (BMI 25.0-29.9) Current Visit: Yes Status: Chronic (7) PTSD (post-traumatic stress disorder) Current Visit: Yes Status: Chronic (8) Withdrawal from benzodiazepine Current Visit: Yes Status: Chronic Qualifiers: Complication of substance-induced condition: uncomplicated Qualified Code(s ): F13.230 - Sedative, hypnotic or anxiolytic dependence with withdrawal, uncomplicated Cleared for Admission [facility] - Detox or Rehab [facility] Level of Care: Medically Managed Detox Regimen/Protocol: Valium Breathalyzer - Breathalyzer Breathalyzer: 0 POC Urine test - Test device test lot number: [id number] Expiration date: 01/13/20 - Control test control: Yes Urine Drug Screen - Test Device Lot number: [id number] Expiration date: 09/11/20 - Control Is test valid?: Yes - Results Drug screen NEGATIVE: No Urine drug screen results: THC-Marijuana, MTD-Methadone, BZO-Benzodiazepines Inpatient Rehab Admission - Rehab Decision to Admit Inpatient rehab admission?: No
--- NOTE | 2018-12-11 18:25 | PN ---
Teaching Attending Note Name of Resident: Lady Sanchez ATTENDING PHYSICIAN STATEMENT I saw and evaluated the patient. I reviewed the resident's note and discussed the case with the resident. I agree with the resident's findings and plan as documented. SUBJECTIVE: 33 yo with PTSD, anxiety, restless leg syndrome, here for detox from benzo's. Pt buying multiple benzo's illicitly- klonopin, xanax. Pt had seizures about 2 weeks ago when attempting to stop. OBJECTIVE: Vital Signs - 24 hr 12/11/18 15:48 Temperature 98.1 F Pulse Rate 78 Respiratory 18 Rate Blood Pressure 108/79 anxious, tremulous, alert and oriented ASSESSMENT AND PLAN: Benzo use disorder- detox with valium f/u PCP at discharge
[2018-12-11] MEDS ORDERED: diazePAM 5 MG TABLET PO ONE (19:01)
[2018-12-11] MEDS ORDERED: IBUPROFEN 400 MG TABLET (FP) PO PRN (19:03)
[2018-12-11] MEDS ORDERED: BISMUTH SUBSALICYLATE 524 MG/30 ML UD PO PRN (19:03)
[2018-12-11] MEDS ORDERED: MAGNESIUM HYDROX 2400MG/30ML ORAL SUSPENSION 30 ML CUP PO PRN (19:03)
[2018-12-11] MEDS ORDERED: MELATONIN 5 MG TABLETS PO PRN (19:03)
[2018-12-11] MEDS ORDERED: MAG HYDROX/AL HYDROX/SIMETH 30 ML UNIT-DOSE CUP PO PRN (19:03)
[2018-12-11] MEDS ORDERED: ACETAMINOPHEN 325 MG TABLET (FP) PO PRN ×2 (19:03)
[2018-12-11] MEDS ORDERED: MENTHOL/PHENOL 1 EACH UD MM PRN (19:03)
[2018-12-11] MEDS ORDERED: cloNIDine HCL 0.1 MG TABLET PO PRN (19:11)
[2018-12-11] MEDS: NICOTINE 14 MG/24 HOURS TOPICAL PATCH TD SCH (20:16)
[2018-12-11] MEDS: diazePAM 5 MG TABLET PO SCH (22:30)
[2018-12-11] MEDS: THIAMINE HCL 100 MG TABLET (FP) PO SCH (22:31)
[2018-12-11] MEDS: CLINDAMYCIN PHOSPHATE 1% TOPICAL GEL 30 GM TUBE TP SCH (22:49)
[2018-12-12] MEDS: diazePAM 5 MG TABLET PO SCH ×3 (06:10→22:29)
[2018-12-12] MEDS ORDERED: METHADONE HCL 10 MG TABLET PO ONE (07:51)
[2018-12-12] MEDS ORDERED: METHADONE 160 MG, METHADONE 15 MG PO ONE (08:00)
[2018-12-12] MEDS ORDERED: METHADONE HCL 5 MG TABLET ONE (08:15)
[2018-12-12] MEDS ORDERED: METHADONE HCL 40 MG DISPERSABLE TABLET ONE (08:15)
[2018-12-12] MEDS: CLINDAMYCIN PHOSPHATE 1% TOPICAL GEL 30 GM TUBE TP SCH ×2 (10:28→22:29)
[2018-12-12] MEDS: NICOTINE 14 MG/24 HOURS TOPICAL PATCH TD SCH (10:29)
[2018-12-12] MEDS: PRENATAL VITAMINS W/ FOLIC ACID TABLET (FP) PO SCH (10:29)
[2018-12-12] MEDS: hydrOXYzine HCL 25 MG TABLET (FP) PO PRN ×2 (10:29→17:17)
[2018-12-12] MEDS: diazePAM 5 MG TABLET PO PRN (10:31)
--- NOTE | 2018-12-12 11:40 | PN ---
S CIWA - CIWA Score Nausea/Vomitin-No Nausea/No Vomiting Muscle Tremors: 3 Anxiety: 3 Agitation: 4-Moderately Restless Paroxysmal Sweats: 3 Orientation: 0-Oriented Tacttile Disturbances: 0-None Auditory Disturbances: 0-None Visual Disturbances: 0-None Headache: 0-None Present CIWA-Ar Total Score: 13 BHS Progress Note (SOAP) Subjective: restless shakes sweats interrupted sleep body aches nausea Objective: 12/12/18 11:40 Vital Signs Temperature 97.9 F 12/12/18 09:36 Pulse Rate 65 12/12/18 09:36 Respiratory Rate 18 12/12/18 09:36 Blood Pressure 116/68 12/12/18 09:36 O2 Sat by Pulse Oximetry (%) aaox3 ambulating no acute distress labs were drawn on her last visit and result WNL. Assessment: 12/12/18 11:42 withdrawal sx abrasion to right knee and left elbow noted d/t fall. will order bacitracin oint. Plan: continue detox increase fluids bacitracin oint ordered swathi aguilar
[2018-12-12] MEDS: BACITRACIN 15 GM TUBE TOPICAL OINTMENT TP SCH ×2 (12:17→22:29)
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
[2018-12-12] MEDS: GABAPENTIN 300 MG CAPSULE (FP) PO SCH ×2 (13:50→22:28)
[2018-12-12] MEDS: traZODone HCL 50 MG TABLET (FP) PO SCH (22:28)
[2018-12-12] MEDS: THIAMINE HCL 100 MG TABLET (FP) PO SCH (22:28)
[2018-12-13] MEDS: diazePAM 5 MG TABLET PO PRN ×4 (02:43→22:19)
[2018-12-13] MEDS ORDERED: METHADONE HCL 40 MG DISPERSABLE TABLET ONE (05:38)
[2018-12-13] MEDS ORDERED: METHADONE HCL 5 MG TABLET ONE (05:38)
[2018-12-13] MEDS ORDERED: METHADONE HCL 10 MG TABLET PO SCH (06:00)
[2018-12-13] MEDS: METHADONE 160 MG, METHADONE 15 MG PO SCH (06:30)
[2018-12-13] MEDS: GABAPENTIN 300 MG CAPSULE (FP) PO SCH ×3 (06:31→22:19)
[2018-12-13] MEDS: diazePAM 5 MG TABLET PO SCH ×2 (06:31→18:10)
[2018-12-13] MEDS: NICOTINE 14 MG/24 HOURS TOPICAL PATCH TD SCH (10:43)
[2018-12-13] MEDS: PRENATAL VITAMINS W/ FOLIC ACID TABLET (FP) PO SCH (10:43)
[2018-12-13] MEDS: CLINDAMYCIN PHOSPHATE 1% TOPICAL GEL 30 GM TUBE TP SCH (10:43)
[2018-12-13] MEDS: BACITRACIN 15 GM TUBE TOPICAL OINTMENT TP SCH (10:43)
[2018-12-13] MEDS: hydrOXYzine HCL 25 MG TABLET (FP) PO PRN ×2 (10:44→18:11)
--- NOTE | 2018-12-13 12:36 | PN ---
S CIWA - CIWA Score Nausea/Vomitin-No Nausea/No Vomiting Muscle Tremors: 1-None Visible, but [place] Anxiety: 2 Agitation: 2 Paroxysmal Sweats: 2 Orientation: 0-Oriented Tacttile Disturbances: 0-None Auditory Disturbances: 0-None Visual Disturbances: 0-None Headache: 0-None Present CIWA-Ar Total Score: 7 S Progress Note (SOAP) Subjective: anxiety sweats restless Objective: 12/13/18 12:35 Vital Signs Temperature 97.7 F 12/13/18 09:48 Pulse Rate 74 12/13/18 09:48 Respiratory Rate 18 12/13/18 09:48 Blood Pressure 118/69 12/13/18 09:48 O2 Sat by Pulse Oximetry (%) Laboratory Tests 12/11/18 17:17 POC Urine HCG, Qual Negative aaox3 ambulating no acute distress Assessment: 12/13/18 12:36 withdrawal sx Plan: continue detox increase fluids d/c in am
[2018-12-13] MEDS: ARIPiprazole 5 MG TABLET (FP) PO SCH (13:26)
[2018-12-13] MEDS: THIAMINE HCL 100 MG TABLET (FP) PO SCH (22:19)
[2018-12-13] MEDS: traZODone HCL 50 MG TABLET (FP) PO SCH (22:19)
[2018-12-14] MEDS: BACITRACIN 15 GM TUBE TOPICAL OINTMENT TP SCH ×2 (00:14→11:06)
[2018-12-14] MEDS: CLINDAMYCIN PHOSPHATE 1% TOPICAL GEL 30 GM TUBE TP SCH ×2 (00:14→11:06)
[2018-12-14] MEDS ORDERED: METHADONE HCL 40 MG DISPERSABLE TABLET ONE (03:59)
[2018-12-14] MEDS ORDERED: METHADONE HCL 5 MG TABLET ONE (03:59)
[2018-12-14] MEDS: GABAPENTIN 300 MG CAPSULE (FP) PO SCH (05:25)
[2018-12-14] MEDS: METHADONE 160 MG, METHADONE 15 MG PO SCH (05:25)
[2018-12-14] MEDS ORDERED: diazePAM 5 MG TABLET PO ONE (06:00)
--- NOTE | 2018-12-14 09:16 | DS ---
[facility] Detox Discharge Summary Admission Date: 12/11/18 Discharge Date: 12/14/18 - History Present History: Alcohol Dependence, Sedative Dependence, MMTP - Physical Exam Results Vital Signs: Vital Signs Temperature 97.3 F L 12/14/18 06:00 Pulse Rate 82 12/14/18 06:00 Respiratory Rate 18 12/14/18 06:00 Blood Pressure 99/58 L 12/14/18 06:00 O2 Sat by Pulse Oximetry (%) Pertinent Admission Physical Exam Findings: pt arrived in withdrawal Laboratory Tests 12/11/18 17:17 POC Urine HCG, Qual Negative no recent labs required pt was had labs drawn on her last visit - Treatment Hospital Course: Detox Protocol Followed, Detoxed Safely, Responded well, Discharged Condition Good, Rehab Referral Accepted Patient has Accepted a Rehab Referral to: going to her outpatient - Medication Discharge Medications: Ambulatory Orders Gabapentin [Neurontin -] 800 mg PO QID 10/13/18 Methadone [Dolophine -] 175 mg PO DAILY 10/13/18 Aripiprazole [Abilify] 5 mg PO DAILY #30 tablet 10/17/18 traZODone HCL [Desyrel -] 100 mg PO HS 12/11/18 Methocarbamol [Robaxin -] 500 mg PO TID #21 tablet 12/14/18 hydrOXYzine HCL [Atarax -] 25 mg PO Q4H PRN #14 tablet 12/14/18 - Diagnosis (1) Sedative, hypnotic or anxiolytic dependence with withdrawal, uncomplicated Current Visit: Yes Status: Chronic (2) Substance induced mood disorder Current Visit: Yes Status: Acute (3) Substance-induced anxiety disorder Current Visit: Yes Status: Acute (4) Mood disorder Current Visit: Yes Status: Chronic (5) Nicotine use disorder Current Visit: Yes Status: Chronic (6) Opioid dependence on agonist therapy Current Visit: Yes Status: Chronic (7) Overweight (BMI 25.0-29.9) Current Visit: Yes Status: Chronic (8) PTSD (post-traumatic stress disorder) Current Visit: Yes Status: Chronic (9) Withdrawal from benzodiazepine Current Visit: Yes Status: Chronic Qualifiers: Complication of substance-induced condition: uncomplicated Qualified Code(s ): F13.230 - Sedative, hypnotic or anxiolytic dependence with withdrawal, uncomplicated (10) Nicotine dependence Current Visit: Yes Status: Acute Qualifiers: Nicotine product type: cigarettes Substance use status: uncomplicated Qualified Code(s): F17.210 - Nicotine dependence, cigarettes, uncomplicated (11) Substance-induced sleep disorder Current Visit: No Status: Acute (12) Alcohol dependence with withdrawal, uncomplicated Current Visit: Yes Status: Chronic (13) Depression Current Visit: No Status: Chronic Qualifiers: Depression Type: unspecified Qualified Code(s): F32.9 - Major depressive disorder, single episode, unspecified (14) Methadone maintenance therapy patient Current Visit: Yes Status: Chronic (15) Mood disorder Current Visit: No Status: Chronic (16) Weight loss Current Visit: No Status: Chronic (17) Substance induced mood disorder Current Visit: No Status: Suspected - AMA Did Patient Leave Against Medical Advice: No
[2018-12-14 09:26] VITALS: BP 114/71; PULSE 72; TEMP 97.2
--- NOTE | 2018-12-14 10:00 | PN ---
Mario Progress Note Note: Psychiatric nurse practitoner note: Patient scheduled for discharged from detox today. Patient scheduled to see a psychiatrist in two weeks. Patient given a two week supply of Abilify 5mg + Gabapentin 600mg TID + Trazodone 50mg HS. Medications were electronically sent to [facility] @ [address] [place] [address].
[2018-12-14] MEDS: PRENATAL VITAMINS W/ FOLIC ACID TABLET (FP) PO SCH (11:06)
[2018-12-14] MEDS: ARIPiprazole 5 MG TABLET (FP) PO SCH (11:06)
[2018-12-14] MEDS: NICOTINE 14 MG/24 HOURS TOPICAL PATCH TD SCH (11:06)
== END 2018-12-14 09:30 | disposition home or self-care (01) | DRG 773 ==
LOC: YASAS 14:11 → Y6N 19:24
PROVIDERS: ADMIT Surgery; ATTEND Surgery
PROC: HZ2ZZZZ Detoxification Services for Substance Abuse Treatment (ICD-10-PCS; principal; 2018-12-11)
DX: F10.230 Alcohol dependence with withdrawal, uncomplicated (principal); F13.230 Sedative, hypnotic or anxiolytic dependence with withdrawal, uncomplicated; F11.20 Opioid dependence, uncomplicated; F17.210 Nicotine dependence, cigarettes, uncomplicated; F19.24 Other psychoactive substance dependence with psychoactive substance-induced mood disorder; F19.280 Other psychoactive substance dependence with psychoactive substance-induced anxiety disorder; F43.10 Post-traumatic stress disorder, unspecified; F32.9 Major depressive disorder, single episode, unspecified; F39 Unspecified mood [affective] disorder; E66.3 Overweight; Z68.26 Body mass index [BMI] 26.0-26.9, adult
CPT/HCPCS: 81025

== ENCOUNTER 2023-08-23 22:59 | Inpatient (IN) | payer OTHER ==
[2023-08-23 23:30] VITALS: BMI 23.3
[2023-08-24] MEDS ORDERED: guaiFENesin 600 MG TABLET.ER (FP) PO PRN (02:05)
[2023-08-24] MEDS ORDERED: BENZONATATE 200 MG CAPSULE PO PRN (02:05)
[2023-08-24] MEDS ORDERED: DICYCLOMINE HCL 10 MG CAPSULE PO PRN (02:05)
[2023-08-24] MEDS ORDERED: LOPERAMIDE HCL 2 MG CAPSULE PO PRN (02:05)
[2023-08-24] MEDS ORDERED: NALOXONE HCL 0.4 MG/ML VIAL IM PRN (02:05)
[2023-08-24] MEDS ORDERED: MAGNESIUM HYDROX 2400MG/30ML ORAL SUSPENSION 30 ML CUP PO PRN (02:05)
[2023-08-24] MEDS ORDERED: BISMUTH SUBSALICYLATE 524 MG/30 ML PO PRN (02:05)
[2023-08-24] MEDS ORDERED: POLYETHYLENE GLYCOL (HEALTHYLAX) 3350 17 GM PACKET PO PRN (02:05)
[2023-08-24] MEDS ORDERED: NALOXONE HCL (KLOXXADO) 8 MG SPRAY NS PRN (02:05)
[2023-08-24] MEDS ORDERED: MAG HYDROX/AL HYDROX/SIMETH 30 ML UNIT-DOSE CUP PO PRN (02:05)
[2023-08-24] MEDS ORDERED: BENZOCAINE/MENTHOL (CHLORASEPTIC ) LOZENGE MM PRN (02:05)
[2023-08-24] MEDS ORDERED: hydrOXYzine PAMOATE 25 MG CAPSULE (FP) PO PRN (02:05)
[2023-08-24] MEDS: TRIMETHOBENZAMIDE HCL 200MG/2ML INJ IM ONE (02:50)
[2023-08-24] MEDS: methaDONE HCL 10 MG TABLET (FOR DETOX USE ONLY) PO ONE (02:55)
[2023-08-24] MEDS ORDERED: diazePAM 5 MG TABLET ONE (03:11)
[2023-08-24] MEDS ORDERED: methaDONE HCL 10 MG TABLET (FOR DETOX USE ONLY) ONE (03:11)
[2023-08-24] MEDS ORDERED: TRIMETHOBENZAMIDE HCL 200MG/2ML INJ IM ONE (03:12)
[2023-08-24] MEDS: diazePAM 5 MG TABLET PO PRN (03:16)
[2023-08-24] MEDS: amLODIPine BESYLATE 10 MG TABLET (FP) PO SCH (10:54)
[2023-08-24] MEDS: NICOTINE 14 MG/24 HOURS TOPICAL PATCH TD SCH (10:54)
[2023-08-24] MEDS: PRENATAL VITAMINS W/ FOLIC ACID TABLET (FP) PO SCH (10:55)
[2023-08-24] MEDS: ONDANSETRON *ODT* 4 MG TABLET SL PRN (10:59)
[2023-08-24] MEDS: cloNIDine HCL 0.1 MG TABLET PO PRN (10:59)
[2023-08-24] MEDS: methaDONE HCL 10 MG TABLET PO PRN (11:21)
[2023-08-24] MEDS: ARIPiprazole 5 MG TABLET PO SCH (16:03)
[2023-08-24] MEDS: ACETAMINOPHEN 325 MG TABLET (FP) PO PRN (17:30)
[2023-08-24] MEDS: METHOCARBAMOL 500 MG TABLET PO PRN (17:31)
[2023-08-24] MEDS: diphenhydrAMINE HCL 25 MG CAPSULE (FP) PO ONE (20:24)
[2023-08-24] MEDS ORDERED: MELATONIN 5 MG TABLETS PO SCH (22:00)
[2023-08-24] MEDS: GABAPENTIN 400 MG CAPSULE PO SCH (22:17)
[2023-08-24] MEDS: MIRTAZAPINE 15 MG TABLET (FP) PO SCH (22:18)
[2023-08-24] MEDS: THIAMINE HCL 100 MG TABLET (FP) PO SCH (22:18)
[2023-08-25] MEDS: IBUPROFEN 600 MG TABLET (FP) PO PRN (03:44)
[2023-08-25] MEDS: NICOTINE POLACRILEX 2 MG GUM BUC PRN (03:57)
[2023-08-25] MEDS: methaDONE 40 MG, methaDONE 10 MG PO ONE (06:34)
[2023-08-25] MEDS: levETIRAcetam 500 MG TABLET (FP) PO SCH (10:41)
[2023-08-25 11:45] LABS: HEMATOCRIT 37.1 % (32.4-45.2); HEMOGLOBIN 12.1 GM/dL (10.7-15.3); MCH 26.9 pg (25.7-33.7); MCHC 32.7 g/dl (32.0-36.0); MEAN CELL VOLUME 82.5 fl (80-96); MEAN PLT VOLUME 9.4 fl (7.5-11.1); PLATELET COUNT 243 10^3/uL (134-434); RDW 16.1 % (11.6-15.6); WHITE BLOOD COUNT 7.3 K/mm3 (4.0-10.0)
[2023-08-25 15:34] LABS: POTASSIUM 3.3 mmol/L (3.5-5.1)
[2023-08-25 15:43] LABS: ALBUMIN 3.3 g/dl (3.4-5.0); BLOOD UREA NITROGEN 19.1 mg/dL (7-18); TOT PROT 6.6 g/dl (6.4-8.2)
[2023-08-25 15:44] LABS: CALCIUM 9.2 mg/dL (8.5-10.1); CREATININE 0.8 mg/dL (0.55-1.3)
[2023-08-25 15:45] LABS: BILIRUBIN,TOTAL 0.4 mg/dL (0.2-1)
[2023-08-26] MEDS: methaDONE 40 MG, methaDONE 20 MG PO ONE (05:39)
[2023-08-26] MEDS ORDERED: methaDONE HCL 10 MG TABLET (FOR DETOX USE ONLY) PO ONE (10:00)
[2023-08-26] MEDS: POTASSIUM CHLORIDE ORAL LIQUID 20 MEQ/15 ML PO ONE (14:51)
[2023-08-26] MEDS: IBUPROFEN 400 MG TABLET (FP) PO PRN (17:55)
[2023-08-27] MEDS: methaDONE 40 MG, methaDONE 30 MG PO ONE (05:15)
[2023-08-27] MEDS: HYDROCORTISONE 1% TOPICAL CREAM 30 GM TUBE TP SCH (22:22)
[2023-08-28] MEDS: methaDONE HCL 40 MG DISPERSABLE TABLET PO ONE (05:24)
[2023-08-28] MEDS ORDERED: methaDONE HCL 10 MG TABLET (FOR DETOX USE ONLY) PO ONE (10:00)
[2023-08-29] MEDS: methaDONE 80 MG, methaDONE 10 MG PO ONE (05:41)
[2023-08-29 09:22] VITALS: BP 101/63; PULSE 103; RESP 20; TEMP 97.8
== END 2023-08-29 09:43 | disposition home or self-care (01) | DRG 773 ==
LOC: YASAS 22:59 → Y6N 08-24 02:28
PROVIDERS: ADMIT Allergy & Immunology; ATTEND Allergy & Immunology
PROC: HZ2ZZZZ Detoxification Services for Substance Abuse Treatment (ICD-10-PCS; principal; 2023-08-24)
DX: F11.23 Opioid dependence with withdrawal (principal); F14.20 Cocaine dependence, uncomplicated; F13.20 Sedative, hypnotic or anxiolytic dependence, uncomplicated; F12.20 Cannabis dependence, uncomplicated; F17.210 Nicotine dependence, cigarettes, uncomplicated; F25.0 Schizoaffective disorder, bipolar type; F19.282 Other psychoactive substance dependence with psychoactive substance-induced sleep disorder; F19.280 Other psychoactive substance dependence with psychoactive substance-induced anxiety disorder; F19.24 Other psychoactive substance dependence with psychoactive substance-induced mood disorder; F39 Unspecified mood [affective] disorder; F43.10 Post-traumatic stress disorder, unspecified; E87.6 Hypokalemia; I11.0 Hypertensive heart disease with heart failure; I50.9 Heart failure, unspecified; R21 Rash and other nonspecific skin eruption; R56.9 Unspecified convulsions; Z28.310 Unvaccinated for COVID-19; Z28.9 Immunization not carried out for unspecified reason
CPT/HCPCS: 36415; 80053; 80307; 81025; 84132; 85027; 86780; 93005; 93010; Q0162

== ENCOUNTER 2023-10-09 18:40 | Inpatient (IN) | payer OTHER ==
[2023-10-09 19:31] VITALS: BMI 23.8
[2023-10-09] MEDS ORDERED: diazePAM 5 MG TABLET PO PRN (19:48)
[2023-10-09] MEDS ORDERED: LOPERAMIDE HCL 2 MG CAPSULE PO PRN (19:50)
[2023-10-09] MEDS ORDERED: BISMUTH SUBSALICYLATE 524 MG/30 ML PO PRN (19:50)
[2023-10-09] MEDS ORDERED: ONDANSETRON *ODT* 4 MG TABLET SL PRN (19:50)
[2023-10-09] MEDS ORDERED: MAG HYDROX/AL HYDROX/SIMETH 30 ML UNIT-DOSE CUP PO PRN (19:50)
[2023-10-09] MEDS ORDERED: P-EPHED 60MG/TRIPROLIDI 2.5MG TABLET PO PRN (19:50)
[2023-10-09] MEDS ORDERED: BENZONATATE 200 MG CAPSULE PO PRN (19:50)
[2023-10-09] MEDS ORDERED: ACETAMINOPHEN 325 MG TABLET (FP) PO PRN (19:50)
[2023-10-09] MEDS ORDERED: guaiFENesin 600 MG TABLET.ER (FP) PO PRN (19:50)
[2023-10-09] MEDS ORDERED: hydrOXYzine PAMOATE 25 MG CAPSULE (FP) PO PRN (19:50)
[2023-10-09] MEDS ORDERED: MAGNESIUM HYDROX 2400MG/30ML ORAL SUSPENSION 30 ML CUP PO PRN (19:50)
[2023-10-09] MEDS ORDERED: BENZOCAINE/MENTHOL (CHLORASEPTIC ) LOZENGE MM PRN (19:50)
[2023-10-09] MEDS ORDERED: IBUPROFEN 400 MG TABLET (FP) PO PRN (19:50)
[2023-10-09] MEDS ORDERED: DICYCLOMINE HCL 10 MG CAPSULE PO PRN (19:50)
[2023-10-09] MEDS ORDERED: NALOXONE HCL 0.4 MG/ML VIAL IM PRN (19:50)
[2023-10-09] MEDS ORDERED: NALOXONE HCL (KLOXXADO) 8 MG SPRAY NS PRN (19:50)
[2023-10-09] MEDS ORDERED: POLYETHYLENE GLYCOL (HEALTHYLAX) 3350 17 GM PACKET PO PRN (19:50)
[2023-10-09] MEDS ORDERED: diazePAM 5 MG TABLET ONE (20:09)
[2023-10-09] MEDS: diazePAM 5 MG TABLET PO ONE (20:20)
[2023-10-09] MEDS: THIAMINE 100 MG TABLET PO SCH (22:02)
[2023-10-09] MEDS: MELATONIN 5 MG TABLETS PO SCH (22:02)
[2023-10-09] MEDS: levETIRAcetam 500 MG TABLET (FP) PO SCH (22:02)
[2023-10-09] MEDS: diazePAM 5 MG TABLET PO SCH (23:19)
[2023-10-10] MEDS: methaDONE HCL 10 MG TABLET (FOR DETOX USE ONLY) PO ONE (10:06)
[2023-10-10] MEDS: PRENATAL VITAMINS W/ FOLIC ACID TABLET (FP) PO SCH (10:07)
[2023-10-10 10:17] LABS: POTASSIUM 3.8 mmol/L (3.5-5.1)
[2023-10-10 10:19] LABS: HEMATOCRIT 32.6 % (32.4-45.2); MCH 26.9 pg (25.7-33.7); MCHC 33.7 g/dl (32.0-36.0); MEAN CELL VOLUME 79.9 fl (80-96); MEAN PLT VOLUME 9.5 fl (7.5-11.1); PLATELET COUNT 161 10^3/uL (134-434); RBC 4.08 M/mm3 (3.60-5.2); RDW 15.3 % (11.6-15.6); WHITE BLOOD COUNT 6.7 K/mm3 (4.0-10.0)
[2023-10-10 10:22] LABS: PH,URINE 5.5 (5.0-8.0); URINE APPEARANCE CLEAR; URINE BILIRUBIN NEGATIVE (NEGATIVE); URINE COLOR YELLOW; URINE GLUCOSE (UA) NEGATIVE (NEGATIVE); URINE KETONE NEGATIVE (NEGATIVE); URINE LEUK ESTERASE TRACE (NEGATIVE); URINE NITRITE NEGATIVE (NEGATIVE); URINE PROTEIN NEGATIVE (NEGATIVE); URINE UROBILINOGEN 0.2 mg/dL (0.2-1.0)
[2023-10-10 10:27] LABS: EPI CELLS 14 /uL (0-25.1); HYALINE CASTS 0 /uL (0-3.1); URINE BACTERIA 270 /uL (0-1359); URINE RBC 7 /uL (0-23.9); URINE WBC 8 /uL (0-25.8)
[2023-10-10 10:35] LABS: CALCIUM 8.9 mg/dL (8.5-10.1)
[2023-10-10 10:39] LABS: ALBUMIN 2.8 g/dl (3.4-5.0); BLOOD UREA NITROGEN 10.8 mg/dL (7-18)
[2023-10-10 10:42] LABS: CREATININE 0.9 mg/dL (0.55-1.3)
[2023-10-10 10:43] LABS: BILIRUBIN,TOTAL 0.8 mg/dL (0.2-1); TOT PROT 6.4 g/dl (6.4-8.2)
[2023-10-10] MEDS: ARIPiprazole 5 MG TABLET PO SCH (11:24)
[2023-10-10] MEDS: GABAPENTIN 400 MG CAPSULE PO SCH (11:24)
[2023-10-10] MEDS: IBUPROFEN 600 MG TABLET (FP) PO PRN (19:02)
[2023-10-10] MEDS: MIRTAZAPINE 15 MG TABLET (FP) PO SCH (22:10)
[2023-10-11] MEDS: METHOCARBAMOL 500 MG TABLET PO PRN (05:31)
[2023-10-11] MEDS: diazePAM 5 MG TABLET PO SCH (05:31)
[2023-10-11] MEDS ORDERED: methaDONE HCL 10 MG TABLET PO ONE (10:00)
[2023-10-11] MEDS: methaDONE HCL 10 MG TABLET PO ONE (14:14)
[2023-10-11] MEDS: NICOTINE POLACRILEX 2 MG LOZENGE BC PRN (20:39)
[2023-10-12] MEDS: diazePAM 5 MG TABLET PO SCH (05:37)
[2023-10-12] MEDS: methaDONE HCL 10 MG TABLET PO ONE (09:56)
[2023-10-12] MEDS ORDERED: methaDONE HCL 10 MG TABLET (FOR DETOX USE ONLY) PO ONE (10:00)
[2023-10-12] MEDS ORDERED: methaDONE HCL 10 MG TABLET PO ONE ×2 (10:00)
[2023-10-13] MEDS: diazePAM 5 MG TABLET PO ONE (05:10)
[2023-10-13] MEDS ORDERED: methaDONE HCL 10 MG TABLET PO ONE (10:00)
[2023-10-14] MEDS ORDERED: methaDONE HCL 10 MG TABLET PO SCH (06:00)
[2023-10-14 06:44] VITALS: TEMP 99.3
[2023-10-14 09:33] VITALS: BP 127/76; PULSE 88; RESP 18
[2023-10-14] MEDS ORDERED: methaDONE HCL 10 MG TABLET (FOR DETOX USE ONLY) PO ONE (10:00)
[2023-10-14] MEDS: PHENAZOPYRIDINE HCL 100 MG TABLET (FP) PO ONE (11:33)
== END 2023-10-14 11:40 | disposition home or self-care (01) | DRG 773 ==
LOC: YASAS 18:40 → Y6N 20:29
PROVIDERS: ADMIT Allergy & Immunology; ATTEND Surgery
PROC: HZ2ZZZZ Detoxification Services for Substance Abuse Treatment (ICD-10-PCS; principal; 2023-10-09)
DX: F11.23 Opioid dependence with withdrawal (principal); F13.230 Sedative, hypnotic or anxiolytic dependence with withdrawal, uncomplicated; F14.20 Cocaine dependence, uncomplicated; F12.20 Cannabis dependence, uncomplicated; F17.210 Nicotine dependence, cigarettes, uncomplicated; F25.0 Schizoaffective disorder, bipolar type; F39 Unspecified mood [affective] disorder; G40.909 Epilepsy, unspecified, not intractable, without status epilepticus; I10 Essential (primary) hypertension; Z86.79 Personal history of other diseases of the circulatory system
CPT/HCPCS: 36415; 80053; 80305; 81003; 81025; 85027; 86780

== ENCOUNTER 2023-11-18 13:22 | Inpatient (IN) | payer OTHER ==
[2023-11-18 14:21] VITALS: BMI 22.3
[2023-11-18] MEDS ORDERED: LOPERAMIDE HCL 2 MG CAPSULE PO PRN (16:51)
[2023-11-18] MEDS ORDERED: BISMUTH SUBSALICYLATE 524 MG/30 ML PO PRN (16:51)
[2023-11-18] MEDS ORDERED: chlordiazePOXIDE HCL 25 MG CAPSULE PO PRN (16:52)
[2023-11-18] MEDS ORDERED: cloNIDine HCL 0.1 MG TABLET PO PRN (16:52)
[2023-11-18] MEDS ORDERED: chlordiazePOXIDE HCL 25 MG CAPSULE ONE (18:08)
[2023-11-18] MEDS ORDERED: methaDONE HCL 10 MG TABLET (FOR DETOX USE ONLY) ONE (18:09)
[2023-11-18] MEDS: methaDONE HCL 10 MG TABLET (FOR DETOX USE ONLY) PO ONE (18:12)
[2023-11-18] MEDS: chlordiazePOXIDE HCL 25 MG CAPSULE PO SCH (18:13)
[2023-11-18] MEDS: METHOCARBAMOL 500 MG TABLET PO PRN (18:17)
[2023-11-18] MEDS: hydrOXYzine PAMOATE 25 MG CAPSULE (FP) PO PRN (18:17)
[2023-11-18] MEDS: ACETAMINOPHEN 325 MG TABLET (FP) PO PRN (18:17)
[2023-11-18] MEDS: levETIRAcetam 500 MG TABLET (FP) PO SCH (22:15)
[2023-11-18] MEDS: ONDANSETRON *ODT* 4 MG TABLET SL PRN (22:16)
[2023-11-19 09:20] VITALS: BP 113/67; PULSE 74; RESP 18; TEMP 97.4
[2023-11-19] MEDS: PRENATAL VITAMINS W/ FOLIC ACID TABLET (FP) PO SCH (10:29)
[2023-11-19] MEDS: amLODIPine BESYLATE 10 MG TABLET (FP) PO SCH (10:29)
[2023-11-19] MEDS: IBUPROFEN 400 MG TABLET (FP) PO PRN (10:33)
[2023-11-19 11:22] LABS: HEMATOCRIT 37.6 % (32.4-45.2); HEMOGLOBIN 12.4 GM/dL (10.7-15.3); MCH 26.8 pg (25.7-33.7); MCHC 33.1 g/dl (32.0-36.0); MEAN CELL VOLUME 80.9 fl (80-96); MEAN PLT VOLUME 8.8 fl (7.5-11.1); PLATELET COUNT 249 10^3/uL (134-434); RBC 4.65 M/mm3 (3.60-5.2); RDW 17.1 % (11.6-15.6); WHITE BLOOD COUNT 7.8 K/mm3 (4.0-10.0)
[2023-11-20] MEDS ORDERED: chlordiazePOXIDE HCL 25 MG CAPSULE PO SCH (05:00)
[2023-11-20] MEDS ORDERED: methaDONE HCL 10 MG TABLET (FOR DETOX USE ONLY) PO ONE (10:00)
[2023-11-21] MEDS ORDERED: chlordiazePOXIDE HCL 10 MG CAPSULE PO PRN
[2023-11-21] MEDS ORDERED: chlordiazePOXIDE HCL 10 MG CAPSULE PO SCH (05:00)
[2023-11-22] MEDS ORDERED: chlordiazePOXIDE HCL 10 MG CAPSULE PO SCH (05:00)
[2023-11-22] MEDS ORDERED: methaDONE HCL 10 MG TABLET (FOR DETOX USE ONLY) PO ONE (10:00)
[2023-11-23] MEDS ORDERED: chlordiazePOXIDE HCL 10 MG CAPSULE PO ONE (05:00)
== END 2023-11-19 12:39 | disposition left against medical advice (07) | DRG 770 ==
LOC: YASAS 13:22 → Y3N 17:48 → Y6N 11-19 11:19 → Y3N 11-19 11:31
PROVIDERS: ADMIT Allergy & Immunology; ATTEND Surgery
PROC: HZ2ZZZZ Detoxification Services for Substance Abuse Treatment (ICD-10-PCS; principal; 2023-11-18)
DX: F11.23 Opioid dependence with withdrawal (principal); F10.20 Alcohol dependence, uncomplicated; F13.20 Sedative, hypnotic or anxiolytic dependence, uncomplicated; F12.20 Cannabis dependence, uncomplicated; F17.210 Nicotine dependence, cigarettes, uncomplicated; F25.0 Schizoaffective disorder, bipolar type; F19.24 Other psychoactive substance dependence with psychoactive substance-induced mood disorder; G40.909 Epilepsy, unspecified, not intractable, without status epilepticus
CPT/HCPCS: 36415; 80305; 80307; 81025; 85027; 93005; 93010; Q0162

== ENCOUNTER 2024-06-08 16:27 | Inpatient (IN) | payer OTHER ==
[2024-06-08 16:46] VITALS: BMI 24.0
[2024-06-08] MEDS ORDERED: BISMUTH SUBSALICYLATE 524 MG/30 ML PO PRN (17:02)
[2024-06-08] MEDS ORDERED: LOPERAMIDE HCL 2 MG CAPSULE PO PRN (17:02)
[2024-06-08] MEDS ORDERED: POLYETHYLENE GLYCOL (HEALTHYLAX) 3350 17 GM PACKET PO PRN (17:02)
[2024-06-08] MEDS ORDERED: NICOTINE POLACRILEX 2 MG GUM BUC PRN (17:02)
[2024-06-08] MEDS ORDERED: BENZONATATE 200 MG CAPSULE PO PRN (17:02)
[2024-06-08] MEDS ORDERED: NICOTINE POLACRILEX 2 MG LOZENGE BC PRN (17:02)
[2024-06-08] MEDS ORDERED: ONDANSETRON *ODT* 4 MG TABLET SL PRN (17:02)
[2024-06-08] MEDS ORDERED: NALOXONE (NARCAN) HCL 4 MG/0.1 ML SPRAY NS PRN (17:02)
[2024-06-08] MEDS ORDERED: DICYCLOMINE HCL 10 MG CAPSULE PO PRN (17:02)
[2024-06-08] MEDS ORDERED: IBUPROFEN 400 MG TABLET (FP) PO PRN (17:02)
[2024-06-08] MEDS ORDERED: ACETAMINOPHEN 325 MG TABLET (FP) PO PRN (17:02)
[2024-06-08] MEDS ORDERED: guaiFENesin 600 MG TABLET.ER (FP) PO PRN (17:02)
[2024-06-08] MEDS ORDERED: P-EPHED 60MG/TRIPROLIDI 2.5MG TABLET PO PRN (17:02)
[2024-06-08] MEDS ORDERED: MAG HYDROX/AL HYDROX/SIMETH 30 ML UNIT-DOSE CUP PO PRN (17:02)
[2024-06-08] MEDS ORDERED: MAGNESIUM HYDROX 2400MG/30ML ORAL SUSPENSION 30 ML CUP PO PRN (17:02)
[2024-06-08] MEDS ORDERED: BENZOCAINE/MENTHOL (CHLORASEPTIC ) LOZENGE MM PRN (17:02)
[2024-06-08] MEDS ORDERED: diazePAM 5 MG TABLET ONE (18:53)
[2024-06-08] MEDS: diazePAM 5 MG TABLET PO SCH (19:08)
[2024-06-08] MEDS: IBUPROFEN 600 MG TABLET (FP) PO PRN (20:47)
[2024-06-08] MEDS ORDERED: CARVEDILOL 3.125 MG TABLET (FP) PO SCH (22:00)
[2024-06-08] MEDS: traZODone HCL 50 MG TABLET (FP) PO ONE (22:00)
[2024-06-08] MEDS ORDERED: SULFAMETHOXAZOLE/TRIMETHOPRIM 800MG/160MG D.S. TABLET PO SCH (22:00)
[2024-06-08] MEDS: MELATONIN 5 MG TABLETS PO SCH (22:09)
[2024-06-08] MEDS: CEPHALEXIN MONOHYDRATE 500 MG CAPSULE (UD) PO SCH (22:09)
[2024-06-08] MEDS: THIAMINE 100 MG TABLET PO SCH (22:09)
[2024-06-08] MEDS: GABAPENTIN 300 MG CAPSULE PO SCH (22:09)
[2024-06-08] MEDS: levETIRAcetam 500 MG TABLET (FP) PO SCH (22:12)
[2024-06-08] MEDS: CARVEDILOL 3.125 MG TABLET (FP) PO SCH (22:12)
[2024-06-09 08:31] LABS: HEMATOCRIT 28.4 % (32.4-45.2); HEMOGLOBIN 9.7 GM/dL (10.7-15.3); MCH 28.6 pg (25.7-33.7); MCHC 34.1 g/dl (32.0-36.0); MEAN CELL VOLUME 84.1 fl (80-96); MEAN PLT VOLUME 8.2 fl (7.5-11.1); PLATELET COUNT 166 10^3/uL (134-434); RBC 3.38 M/mm3 (3.60-5.2); RDW 13.6 % (11.6-15.6); WHITE BLOOD COUNT 4.7 K/mm3 (4.0-10.0)
[2024-06-09 08:37] LABS: ALBUMIN 3.1 g/dl (3.4-5.0); BLOOD UREA NITROGEN 20.9 mg/dL (7-18); CALCIUM 8.9 mg/dL (8.5-10.1)
[2024-06-09 08:40] LABS: BILIRUBIN,TOTAL 0.4 mg/dL (0.2-1)
[2024-06-09 08:41] LABS: TOT PROT 6.2 g/dl (6.4-8.2)
[2024-06-09] MEDS ORDERED: LOSARTAN POTASSIUM 25 MG TABLET PO SCH (10:00)
[2024-06-09] MEDS: PRENATAL VITAMINS W/ FOLIC ACID TABLET (FP) PO SCH (10:04)
[2024-06-09] MEDS: FOLIC ACID 1 MG TABLET (FP) PO SCH (10:07)
[2024-06-09] MEDS: ASCORBIC ACID 500 MG TABLET (FP) PO SCH (10:08)
[2024-06-09] MEDS: LOSARTAN POTASSIUM 25 MG TABLET PO SCH (10:08)
[2024-06-09] MEDS: PNEUMOC 20-VAL CONJ-DIP CRM/PF 0.5 ML SYRINGE IM ONE (11:52)
[2024-06-09] MEDS: FLU VACCINE (FLULAVAL) PF 45 MCG/0.5 ML SYRINGE 2024-2025 IM ONE (11:55)
[2024-06-09] MEDS: FLUoxetine HCL 20 MG CAPSULE PO SCH (11:58)
[2024-06-09] MEDS: methaDONE HCL 10 MG TABLET PO ONE (12:53)
[2024-06-09 13:03] LABS: HIV INTERPRETATION NEGATIVE (NEGATIVE)
[2024-06-09] MEDS: FERROUS SO4 325 MG TABLET (FP) PO SCH (13:23)
[2024-06-09] MEDS ORDERED: levETIRAcetam 250 MG TABLET PO ONE (21:41)
[2024-06-09] MEDS: MIRTAZAPINE 30 MG TABLET PO SCH (22:31)
[2024-06-09] MEDS: PRAZOSIN HCL 1 MG CAPSULE PO SCH (22:36)
[2024-06-10] MEDS: diazePAM 5 MG TABLET PO SCH (05:57)
[2024-06-10] MEDS ORDERED: levETIRAcetam 250 MG TABLET PO ONE (09:56)
[2024-06-10] MEDS ORDERED: methaDONE HCL 10 MG TABLET PO ONE (10:03)
[2024-06-10] MEDS: diazePAM 5 MG TABLET PO PRN (10:14)
[2024-06-10] MEDS: PATIENT'S OWN MEDICATION (NON-FORMULARY) (Glecaprevir/Pibrentasvir [Mavyret 100-40 Mg Tabl PO SCH (12:04)
[2024-06-11] MEDS ORDERED: methaDONE HCL 10 MG TABLET PO SCH (06:00)
[2024-06-11] MEDS: diazePAM 5 MG TABLET PO SCH (06:11)
[2024-06-11] MEDS: METHOCARBAMOL 500 MG TABLET PO PRN (22:19)
[2024-06-12] MEDS: diazePAM 5 MG TABLET PO ONE (06:18)
[2024-06-12 09:18] VITALS: BP 102/67; PULSE 81; RESP 18; TEMP 98.4
== END 2024-06-12 10:55 | disposition other institution (70) | DRG 773 ==
LOC: YASAS 16:27 → Y6N 18:52
PROVIDERS: ADMIT Allergy & Immunology; ATTEND Allergy & Immunology
PROC: HZ2ZZZZ Detoxification Services for Substance Abuse Treatment (ICD-10-PCS; principal; 2024-06-08)
DX: F13.230 Sedative, hypnotic or anxiolytic dependence with withdrawal, uncomplicated (principal); F11.20 Opioid dependence, uncomplicated; F14.20 Cocaine dependence, uncomplicated; F12.20 Cannabis dependence, uncomplicated; F17.213 Nicotine dependence, cigarettes, with withdrawal; F19.282 Other psychoactive substance dependence with psychoactive substance-induced sleep disorder; F19.280 Other psychoactive substance dependence with psychoactive substance-induced anxiety disorder; F39 Unspecified mood [affective] disorder; F43.10 Post-traumatic stress disorder, unspecified; D50.9 Iron deficiency anemia, unspecified; G40.909 Epilepsy, unspecified, not intractable, without status epilepticus; R76.8 Other specified abnormal immunological findings in serum; Z62.810 Personal history of physical and sexual abuse in childhood
CPT/HCPCS: 36415; 80053; 80305; 80307; 81025; 85027; 86705; 86780; 86803; 87350; 87389; 87517; 87522; 87811; 90656; 90677; 93005; 93010; G0008; G0009

== ENCOUNTER 2024-06-29 16:46 | Inpatient (IN) | payer OTHER ==
[2024-06-29 17:01] VITALS: BMI 24.0
[2024-06-29] MEDS ORDERED: MAG HYDROX/AL HYDROX/SIMETH 30 ML UNIT-DOSE CUP PO PRN (17:30)
[2024-06-29] MEDS ORDERED: BENZOCAINE/MENTHOL (CHLORASEPTIC ) LOZENGE MM PRN (17:30)
[2024-06-29] MEDS ORDERED: BENZONATATE 200 MG CAPSULE PO PRN (17:30)
[2024-06-29] MEDS ORDERED: guaiFENesin 600 MG TABLET.ER (FP) PO PRN (17:30)
[2024-06-29] MEDS ORDERED: NICOTINE POLACRILEX 2 MG LOZENGE BC PRN (17:30)
[2024-06-29] MEDS ORDERED: BISMUTH SUBSALICYLATE 524 MG/30 ML PO PRN (17:30)
[2024-06-29] MEDS ORDERED: ONDANSETRON *ODT* 4 MG TABLET SL PRN (17:30)
[2024-06-29] MEDS ORDERED: P-EPHED 60MG/TRIPROLIDI 2.5MG TABLET PO PRN (17:30)
[2024-06-29] MEDS ORDERED: LOPERAMIDE HCL 2 MG CAPSULE PO PRN (17:30)
[2024-06-29] MEDS ORDERED: IBUPROFEN 400 MG TABLET (FP) PO PRN (17:30)
[2024-06-29] MEDS ORDERED: NALOXONE (NARCAN) HCL 4 MG/0.1 ML SPRAY NS PRN (17:30)
[2024-06-29] MEDS ORDERED: POLYETHYLENE GLYCOL (HEALTHYLAX) 3350 17 GM PACKET PO PRN (17:30)
[2024-06-29] MEDS ORDERED: MAGNESIUM HYDROX 2400MG/30ML ORAL SUSPENSION 30 ML CUP PO PRN (17:30)
[2024-06-29] MEDS ORDERED: diazePAM 5 MG TABLET ONE (17:47)
[2024-06-29] MEDS: diazePAM 5 MG TABLET PO SCH (18:00)
[2024-06-29] MEDS: ACETAMINOPHEN 325 MG TABLET (FP) PO PRN (18:28)
[2024-06-29] MEDS: levETIRAcetam 500 MG TABLET (FP) PO SCH (22:05)
[2024-06-29] MEDS: THIAMINE 100 MG TABLET PO SCH (22:05)
[2024-06-29] MEDS: MELATONIN 5 MG TABLETS PO SCH (22:05)
[2024-06-29] MEDS: CARVEDILOL 3.125 MG TABLET (FP) PO SCH (22:05)
[2024-06-30 09:28] LABS: POTASSIUM 4.1 mmol/L (3.5-5.1)
[2024-06-30 09:31] LABS: HEMATOCRIT 30.2 % (32.4-45.2); HEMOGLOBIN 9.9 GM/dL (10.7-15.3); MCH 27.5 pg (25.7-33.7); MCHC 32.8 g/dl (32.0-36.0); MEAN CELL VOLUME 83.7 fl (80-96); MEAN PLT VOLUME 8.2 fl (7.5-11.1); PLATELET COUNT 247 10^3/uL (134-434); RBC 3.61 M/mm3 (3.60-5.2); RDW 13.8 % (11.6-15.6); WHITE BLOOD COUNT 6.2 K/mm3 (4.0-10.0)
[2024-06-30 09:33] LABS: BLOOD UREA NITROGEN 16.2 mg/dL (7-18); CALCIUM 8.7 mg/dL (8.5-10.1)
[2024-06-30 09:36] LABS: CREATININE 0.9 mg/dL (0.55-1.3)
[2024-06-30 09:38] LABS: BILIRUBIN,TOTAL 0.3 mg/dL (0.2-1); TOT PROT 6.7 g/dl (6.4-8.2)
[2024-06-30] MEDS ORDERED: PATIENT'S OWN MEDICATION (NON-FORMULARY) (Ferrous Sulfate [Ferrous Sulfate] 325 MG Tablet) PO SCH (10:00)
[2024-06-30] MEDS: PRENATAL VITAMINS W/ FOLIC ACID TABLET (FP) PO SCH (10:09)
[2024-06-30] MEDS: FERROUS SO4 325 MG TABLET (FP) PO SCH (10:10)
[2024-06-30] MEDS: LOSARTAN POTASSIUM 25 MG TABLET PO SCH (10:10)
[2024-06-30] MEDS: IBUPROFEN 600 MG TABLET (FP) PO PRN (10:15)
[2024-06-30] MEDS: methaDONE HCL 10 MG TABLET PO ONE (10:30)
[2024-06-30] MEDS: GABAPENTIN 300 MG CAPSULE PO SCH (12:01)
[2024-06-30] MEDS: FLUoxetine HCL 20 MG CAPSULE PO SCH (12:01)
[2024-06-30] MEDS: METHOCARBAMOL 500 MG TABLET PO PRN (15:38)
[2024-06-30] MEDS ORDERED: MIRTAZAPINE 15 MG TABLET (FP) ONE ×3 (21:31→21:33)
[2024-06-30] MEDS: MIRTAZAPINE 30 MG TABLET PO SCH (21:36)
[2024-06-30] MEDS: PRAZOSIN HCL 1 MG CAPSULE PO SCH (22:05)
[2024-07-01] MEDS: diazePAM 5 MG TABLET PO SCH (05:41)
[2024-07-01] MEDS ORDERED: methaDONE HCL 10 MG TABLET PO ONE (08:47)
[2024-07-01] MEDS: diazePAM 5 MG TABLET PO PRN (09:46)
[2024-07-01] MEDS: NICOTINE POLACRILEX 2 MG GUM BUC PRN (14:02)
[2024-07-02] MEDS: diazePAM 5 MG TABLET PO SCH (05:38)
[2024-07-02] MEDS: DICYCLOMINE HCL 10 MG CAPSULE PO PRN (09:54)
[2024-07-02] MEDS ORDERED: methaDONE HCL 10 MG TABLET PO SCH (11:15)
[2024-07-02] MEDS: diazePAM 5 MG TABLET PO ONE (19:58)
[2024-07-03] MEDS: diazePAM 5 MG TABLET PO ONE (05:32)
[2024-07-03 08:47] VITALS: BP 93/71; PULSE 88; RESP 18; TEMP 98.1
== END 2024-07-03 09:56 | disposition home or self-care (01) | DRG 773 ==
LOC: YASAS 16:46 → Y3N 17:33
PROVIDERS: ADMIT Allergy & Immunology; ATTEND Allergy & Immunology
PROC: HZ2ZZZZ Detoxification Services for Substance Abuse Treatment (ICD-10-PCS; principal; 2024-06-29)
DX: F13.230 Sedative, hypnotic or anxiolytic dependence with withdrawal, uncomplicated (principal); F11.20 Opioid dependence, uncomplicated; F14.20 Cocaine dependence, uncomplicated; F17.210 Nicotine dependence, cigarettes, uncomplicated; F33.1 Major depressive disorder, recurrent, moderate; D64.9 Anemia, unspecified; I11.0 Hypertensive heart disease with heart failure; I50.9 Heart failure, unspecified; C53.9 Malignant neoplasm of cervix uteri, unspecified; Z86.718 Personal history of other venous thrombosis and embolism; Z79.82 Long term (current) use of aspirin
CPT/HCPCS: 36415; 80053; 80305; 80307; 81025; 85027